=== PATIENT | female | born 1970 | race Caucasian/White ===

== ENCOUNTER 2016-09-20 20:07 | Inpatient (IN) | payer OTHER ==
[~2016-09-20] VITALS: Ht 162.6 cm; Wt 96.2 kg
[~2016-09-20 20:07] MED LIST: IBUPROFEN; TYLENOL
[2016-09-20] MEDS ORDERED: IV NORMAL SALINE 1000 ML BAG IV ONE (20:30)
--- NOTE | 2016-09-20 20:30 | NUR ---
PATIENT WALKED INTO ER C/O LOWER ABDOMINAL PAIN X 1DAY.
--- NOTE | 2016-09-20 20:36 | NUR ---
UNABLE TO ORDER MED AT THIS TIME IN COMPUTER. ORDERED MORPHINE 4MG AND ZOFRAN 4MG
[2016-09-20] MEDS ORDERED: MORPHINE SULFATE 4 MG/1 ML DISP.SYRIN IV ONE ×2 (20:45→22:00)
[2016-09-20] MEDS ORDERED: ONDANSETRON 4 MG/2 ML VIAL IV ONE ×2 (20:45→22:00)
[2016-09-20 20:52] LABS: BASOPHILS # (AUTO) 0.2 K/uL (0.0-8.0); BASOPHILS % (AUTO) 1.1 % (0.0-2.0); EOSINOPHILS # (AUTO) 0.4 K/uL (0.0-0.7); EOSINOPHILS % (AUTO) 2.2 % (0.0-7.0); HEMATOCRIT 42.5 % (37-47); LYMPHOCYTES # (AUTO) 1.3 K/UL (0.8-4.8); LYMPHOCYTES % (AUTO) 6.7 % (20.5-51.5); MEAN CORPUSCULAR HEMOGLOBIN 30.4 UUG (27.0-31.0); MEAN CORPUSCULAR HGB CONC 33 g/dL (32.0-37.0); MONOCYTES # (AUTO) 0.9 K/UL (0.1-1.30); MONOCYTES % (AUTO) 4.7 % (0.0-11.0); NEUTROPHILS % (AUTO) 85.3 % (38.5-71.5); PLATELET COUNT (AUTO) 302 K/UL (150-450); RED BLOOD CELL COUNT(AUTO) 4.62 MIL/UL (4.2-5.4); WHITE BLOOD COUNT (AUTO) 19.8 K/UL (4.0-11.2)
[2016-09-20] MEDS ORDERED: MORPHINE SULFATE 4 MG/1 ML DISP.SYRIN ONE ×2 (21:01→22:03)
[2016-09-20] MEDS ORDERED: ONDANSETRON 4 MG/2 ML VIAL ONE ×2 (21:01→22:03)
[2016-09-20 21:03] LABS: CREATININE 1.1 mg/dL (0.6-1.3); POTASSIUM 4.2 mmol/L (3.5-5.1)
[2016-09-20 21:09] LABS: BILIRUBIN,DIRECT 0.1 mg/dL (0.0-0.2); BILIRUBIN,TOTAL 0.2 mg/dL (0.2-1.0); TOTAL PROTEIN, SERUM 7.6 g/dL (6.4-8.2)
[2016-09-20 21:33] LABS: BAND % (MANUAL) 1 % (0-10); BASOPHILS % (MANUAL) 0 % (0-2); EOSINOPHILS % (MANUAL) 4 % (0-8); LYMPHOCYTES % (MANUAL) 9 % (20-40); MONOCYTES % (MANUAL) 6 % (2-10); NEUTROPHILS % (MANUAL) 80 % (42-75)
[2016-09-20 22:01] LABS: *BILIRUBIN,URIN NEGATIVE (NEGATIVE); *BLOOD, URINE 1+ (NEGATIVE); *CLARITY,URINE CLOUDY (CLEAR); *COLOR,URINE YELLOW (YELLOW); *KETONES,URINE NEGATIVE (NEGATIVE); *PROTEIN,URINE 1+ (NEGATIVE); LEUKOCYTE ESTERASE ,URINE 3+ (NEGATIVE); NITRITE, URINE NEGATIVE (NEGATIVE); PH,URINE 6.5 (5.0-8.0); UGLUCOSE NEGATIVE (NEGATIVE)
[2016-09-20 22:23] LABS: BACTERIA,URINE MODERATE /HPF (NONE SEEN); WBC,URINE 50-80 /HPF (0-3)
[2016-09-20 22:24] LABS: SQUAMOUS EPITHELIAL CELL,UR MANY /HPF (NONE SEEN); TRICHOMONAS,URINE FEW /HPF (NONE SEEN); URINE AMORPHOUS PHOSPHATES FEW /HPF
[2016-09-20] MEDS ORDERED: HYDROMORPHONE 1 MG/1 ML DISP.SYRIN IV ONE (23:00)
[2016-09-20] MEDS ORDERED: HYDROMORPHONE 1 MG/1 ML DISP.SYRIN ONE (23:12)
[2016-09-21] MEDS ORDERED: IOHEXOL 300MG/ML 100 ML INFUS..BTL ONE (00:49)
[2016-09-21] MEDS ORDERED: IV NORMAL SALINE 250 ML IV ONE (00:49)
[2016-09-21] MEDS ORDERED: MEROPENEM 500 MG in IV NORMAL SALINE 100 ML IV ONE (02:00)
[2016-09-21] MEDS ORDERED: HYDROMORPHONE 1 MG/1 ML DISP.SYRIN IV ONE (02:15)
[2016-09-21] MEDS ORDERED: MEROPENEM 500 MG VIAL IV ONE (02:25)
[2016-09-21] MEDS ORDERED: HYDROMORPHONE 1 MG/1 ML DISP.SYRIN ONE (02:25)
--- NOTE | 2016-09-21 02:41 | NUR ---
DR CHAPMAN SPOKE WITH DR RIVAS FOR CONSULT
[2016-09-21] MEDS ORDERED: METRONIDAZOLE 500 MG/NS 100 ML PIGGYBACK IV ONE (02:45)
[2016-09-21] MEDS ORDERED: Z GUARD REMEDY PASTE 57 GM TUBE TOP PRN (03:15)
[2016-09-21] MEDS ORDERED: ACETAMINOPHEN 325 MG TABLET PO PRN (03:15)
[2016-09-21] MEDS ORDERED: MORPHINE SULFATE 2 MG/1 ML DISP.SYRIN IV PRN (03:15)
[2016-09-21] MEDS ORDERED: METRONIDAZOLE 500 MG/NS 100ML 100 ML IV ONE (03:17)
--- NOTE | 2016-09-21 03:58 | NUR ---
TRANSFERED TO 2ND FLOOR VIA [facility]
--- NOTE | 2016-09-21 04:00 | NUR ---
ADMIT NEW PATIENT TO ROOM 207,PATIENT ALERT,ORIENTED,KEEP NPO EXCEPT MEDS, PATIENT EXPLAINED AND VERBALIZED UNDERSTANDING,PATIENT DROWSY, RECEIVED PAIN MEDICATION FROM ER,PAIN UNDER CONTROL,PATIENT MADE COMFORTABLE,NEEDS ATTENDED.
[2016-09-21 04:11] VITALS: BP 123/82
[2016-09-21] MEDS ORDERED: CLINDAMYCIN PHOSPHATE 900 MG/6 ML VIAL ONE (05:33)
[2016-09-21] MEDS ORDERED: GENTAMICIN SULFATE 80 MG/2 ML VIAL ONE (05:38)
[2016-09-21] MEDS: CLINDAMYCIN PHOSPHATE IV 900 MG in IV DEXTROSE 5% 100 ML IV SCH ×3 (05:53→21:02)
[2016-09-21] MEDS ORDERED: GENTAMICIN SULFATE 20 MG/2 ML VIAL IV SCH (06:00)
[2016-09-21] MEDS: ONDANSETRON 4 MG/2 ML VIAL IV PRN ×2 (06:10→17:21)
[2016-09-21] MEDS ORDERED: MORPHINE SULFATE 2 MG/1 ML DISP.SYRIN ONE (06:18)
[2016-09-21] MEDS ORDERED: ONDANSETRON 4 MG/2 ML VIAL ONE (06:18)
--- NOTE | 2016-09-21 06:38 | NUR ---
morphine 2mg iv admin for c/o pain 10/10 to right lower abdomen and zofran 4 mg iv admin for nausea.
[2016-09-21] MEDS ORDERED: MORPHINE SULFATE 4 MG/1 ML DISP.SYRIN IV ONE (09:00)
[2016-09-21] MEDS ORDERED: MORPHINE SULFATE 4 MG/1 ML DISP.SYRIN IV PRN (09:00)
--- NOTE | 2016-09-21 09:06 | NUR ---
PT IN SEVERE PAIN. DR ORDERS TO INCREASE PAIN MEDICATION VERIFIED ON EMAR HOWEVER DOES NOT SHOW UP IN PIXIS. PHARMACY AWARE AND FIXING THE ISSUE. PAIN MEDICATION OVERRIDE WITH RN FOR THIS TIME
[2016-09-21] MEDS: GENTAMICIN SULFATE INJ 100 MG in IV DEXTROSE 5% 100 ML IV SCH ×2 (10:29→20:14)
[2016-09-21 11:43] VITALS: BP 102/73
[2016-09-21 12:30] LABS: POTASSIUM 4.2 mmol/L (3.5-5.1)
[2016-09-21 12:37] LABS: BASOPHILS % (AUTO) 0.1 % (0.0-2.0); EOSINOPHILS # (AUTO) 0.1 K/uL (0.0-0.7); EOSINOPHILS % (AUTO) 0.5 % (0.0-7.0); HEMATOCRIT 42.7 % (37-47); LYMPHOCYTES # (AUTO) 1.1 K/UL (0.8-4.8); LYMPHOCYTES % (AUTO) 4.5 % (20.5-51.5); MEAN CORPUSCULAR HEMOGLOBIN 30.6 UUG (27.0-31.0); MEAN CORPUSCULAR HGB CONC 33 g/dL (32.0-37.0); MEAN CORPUSCULAR VOLUME 93.1 FL (81.0-99.0); MONOCYTES # (AUTO) 0.4 K/UL (0.1-1.30); MONOCYTES % (AUTO) 1.6 % (0.0-11.0); NEUTROPHILS # (AUTO) 21.8 K/UL (1.8-8.9); NEUTROPHILS % (AUTO) 93.3 % (38.5-71.5); PLATELET COUNT (AUTO) 301 K/UL (150-450); RED BLOOD CELL COUNT(AUTO) 4.58 MIL/UL (4.2-5.4); WHITE BLOOD COUNT (AUTO) 23.4 K/UL (4.0-11.2)
[2016-09-21 12:38] LABS: THYROID STIMULATING HORMONE 0.8 mIU/mL (0.358-3.740)
[2016-09-21] MEDS: MORPHINE SULFATE 4 MG/1 ML DISP.SYRIN IV PRN ×3 (12:46→20:15)
[2016-09-21 13:18] LABS: BAND % (MANUAL) 11 % (0-10); EOSINOPHILS % (MANUAL) 1 % (0-8); LYMPHOCYTES % (MANUAL) 8 % (20-40); MONOCYTES % (MANUAL) 2 % (2-10); NEUTROPHILS % (MANUAL) 78 % (42-75)
[2016-09-21 15:41] VITALS: BP 109/72
--- NOTE | 2016-09-21 16:11 | NUR ---
Clinical pharmacy note-Gentamicin per pharmacy Subjective: To start Gentamicin dosing on this patient (empiric therapy -no MD note yet) for leukocytosis and abdominal pain. Patient has multiple drug allergy. Objective: BUN 10/ Scr 1.1 WBC 23.4 Temp 99 Assessment/Plan: Gentamicin 100mg IV every 10 hrs(first dose given today at 1030) and draw peak and trough(ordered with tomorrow 1630 dose) for expected trough 1.1 and peak 6.0. Will monitor renal function closely to adjust the dose if needed. Will follow daily.
--- NOTE | 2016-09-21 20:09 | NUR ---
PATIENT BEEN IN BED COMPLAINING OF SEVERE ABDOMINAL PAIN. CALLED DR. OLIVAREZ MS WAS INCREASED TO 4 MG, IT WAS EFFECTIVE. PATIENT VERBALIZED RELIEF OF PAIN. DR. URRUTIA CAME TO SEE PATIENT. URINE SAMPLE WAS COLLECTED AND SENT TO LAB. SAFETY AND COMFORT PROVIDED BY STAFF. REPORT GIVEN TO DONELL.
[2016-09-21 20:46] VITALS: BP 100/64
[2016-09-21] MEDS: MAGNESIUM HYDROXIDE 30 ML LIQUID UDC PO PRN (20:59)
--- NOTE | 2016-09-21 21:05 | NUR ---
patient was seen by ,order for PICC line insertion in am,continue c/o right lower abdominal pain and nausea,continue pain and nausea control as needed,encourage fluid intake,o2 desat to 89% in room air,placed on o2 at 2l/m via nasal cannula to keep o2 sat 93%-94%
[2016-09-22] MEDS: MORPHINE SULFATE 4 MG/1 ML DISP.SYRIN IV PRN ×7 (00:27→22:23)
[2016-09-22] MEDS: ONDANSETRON 4 MG/2 ML VIAL IV PRN ×3 (05:12→19:26)
[2016-09-22] MEDS: CLINDAMYCIN PHOSPHATE IV 900 MG in IV DEXTROSE 5% 100 ML IV SCH ×2 (05:13→14:43)
[2016-09-22 05:26] VITALS: BP 102/70
--- NOTE | 2016-09-22 05:44 | NUR ---
MOM 30 ml po admin for constipation,no bowel movement this am.
[2016-09-22] MEDS: GENTAMICIN SULFATE INJ 100 MG in IV DEXTROSE 5% 100 ML IV SCH (06:44)
[2016-09-22 07:09] LABS: BASOPHILS % (AUTO) 0.1 % (0.0-2.0); EOSINOPHILS # (AUTO) 0.2 K/uL (0.0-0.7); EOSINOPHILS % (AUTO) 0.7 % (0.0-7.0); LYMPHOCYTES # (AUTO) 1.1 K/UL (0.8-4.8); LYMPHOCYTES % (AUTO) 3.2 % (20.5-51.5); MEAN CORPUSCULAR HGB CONC 33 g/dL (32.0-37.0); MEAN CORPUSCULAR VOLUME 92.7 FL (81.0-99.0); MONOCYTES # (AUTO) 0.8 K/UL (0.1-1.30); MONOCYTES % (AUTO) 2.4 % (0.0-11.0); NEUTROPHILS # (AUTO) 30.8 K/UL (1.8-8.9); NEUTROPHILS % (AUTO) 93.6 % (38.5-71.5); PLATELET COUNT (AUTO) 310 K/UL (150-450); RED BLOOD CELL COUNT(AUTO) 4.53 MIL/UL (4.2-5.4)
[2016-09-22 07:25] LABS: WHITE BLOOD COUNT (AUTO) 32.9 K/UL (4.0-11.2)
[2016-09-22 07:26] LABS: CREATININE 1.1 mg/dL (0.6-1.3); MAGNESIUM 2.1 mg/dL (1.8-2.4); PHOSPHOROUS 3.8 mg/dL (2.5-4.9); POTASSIUM 3.8 mmol/L (3.5-5.1)
--- NOTE | 2016-09-22 08:21 | NUR ---
INSERTION OF PICC LINE ORDER NOTED, LEFT MESSAGE FOR PICC LINE NURSE, AWAITING RETURN PHONE CALL
--- NOTE | 2016-09-22 08:30 | NUR ---
MEDICATED FOR C/O PAIN AND DISCOMFORTS ORDERED PATIENT STATED HAVING LOTS OF ABDOMINAL PAIN MEDICATED AND WILL OBSERVE.
[2016-09-22] MEDS: PANTOPRAZOLE SODIUM 40 MG TABLET.DR PO SCH (08:56)
--- NOTE | 2016-09-22 09:04 | NUR ---
SECOND CALL PLACED FOR PICC LINE INSERTION, LEFT MESSAGE, AWAITING PHONE CALL
[2016-09-22] MEDS ORDERED: PANTOPRAZOLE SODIUM 40 MG TABLET.DR PO ONE (09:07)
--- NOTE | 2016-09-22 09:20 | NUR ---
CALL RECEIVED FROM THE LAB WITH WBC OF 32.[address] ROLLE WITH NO NEW ORDERS AT THIS TIME.
[2016-09-22 10:33] LABS: BAND % (MANUAL) 13 % (0-10); EOSINOPHILS % (MANUAL) 2 % (0-8); LYMPHOCYTES % (MANUAL) 6 % (20-40); METAMYELOCYTES % 1 % (0-1); MONOCYTES % (MANUAL) 3 % (2-10); NEUTROPHILS % (MANUAL) 75 % (42-75)
[2016-09-22 12:04] VITALS: BP 94/65
--- NOTE | 2016-09-22 12:15 | NUR ---
PICC LINE INSERTED TO HIS RIGHT UPPER ARM TRIPLE LUMEN FLUSHED PER PROTOCOL CHECKED BY XRAY AND IN GOOD POSITION.PATIENT MEDICATED WITH MORPHINE ORDERED FOR PAIN.
[2016-09-22] MEDS ORDERED: AZITHROMYCIN IV 1,000 MG in IV DEXTROSE 5% 250 ML IV SCH (13:00)
--- NOTE | 2016-09-22 13:50 | NUR ---
CLINICAL PHARMACY NOTE:VANCOMYCIN DOSING Request for vancomycin dosing on 45 Y/o female 5'4" 212LBS SEPSIS AND POSSIBLE TUBO-OVARIAN ABCESS Temp 99.8 WBC 32.9 band 13 patient also on Merrem, clindamycin and one dose azithromycin start Vancomycin 1500mg Q18hr estimated trough 14. Will order trough level prior to 4th dose. Will continue to monitor
[2016-09-22] MEDS: MEROPENEM 1 G in IV NORMAL SALINE 100 ML IV SCH (14:11)
--- NOTE | 2016-09-22 14:30 | NUR ---
DR DANGELO HERE TO SEE PATIENT WITH NEW ORDERS AND NOTED.
[2016-09-22 15:32] VITALS: BP 104/67
[2016-09-22] MEDS ORDERED: AZITHROMYCIN IV SCH (16:00)
[2016-09-22] MEDS ORDERED: DEXTROSE 5% IV SCH (16:00)
[2016-09-22] MEDS: VANCOMYCIN IV 1,500 MG in IV DEXTROSE 5% 500 ML IV SCH (16:09)
--- NOTE | 2016-09-22 17:24 | NUR ---
REMAIN ON ANTIBIOTICS ORDERED WITH NO ADVERSE OR ALLERGIC REACTIONS AT THIS TIME.PAIN MEDICATIONS ORDERED AND HELPFUL.MADE COMFORTABLE
--- NOTE | 2016-09-22 18:51 | NUR ---
PATIENT IS RESTING AT THIS TIME SLEEPING ON AND OFF WITH NO ADVERSE OR ALLERGIC REACTIONS AT THIS TIME.
--- NOTE | 2016-09-22 19:30 | NUR ---
PT RECEIVED IN BED, ASLEEP INTERMITTENTLY. A/OX4. ABLE TO MAKE NEEDS KNOWN. V/S STABLE. NO SIGNS OF ACUTE DISTRESS. NO COMPLAINTS OF PAIN AT THIS TIME. IVF INFUSING. SAFETY MEASURES IMPLEMENTED. FALL PRECAUTIONS IN PLACE. CALL LIGHT WITHIN REACH. WILL CONT TO MONITOR.
[2016-09-22 20:00] VITALS: BP 114/77
[2016-09-22] MEDS: FLUCONAZOLE 400MG /NS 200ML IV 400 MG in PREMIXED 1 EACH IV SCH (20:50)
[2016-09-23] MEDS: CLINDAMYCIN PHOSPHATE IV 900 MG in IV DEXTROSE 5% 100 ML IV SCH ×4 (00:09→21:48)
[2016-09-23] MEDS: MEROPENEM 1 G in IV NORMAL SALINE 100 ML IV SCH ×4 (00:57→23:34)
[2016-09-23] MEDS: ONDANSETRON 4 MG/2 ML VIAL IV PRN (01:30)
[2016-09-23] MEDS: MORPHINE SULFATE 4 MG/1 ML DISP.SYRIN IV PRN ×6 (01:31→21:39)
[2016-09-23 05:36] VITALS: BP 84/62
[2016-09-23 05:58] VITALS: BP 99/63
[2016-09-23 06:41] LABS: BASOPHILS % (AUTO) 0.1 % (0.0-2.0); EOSINOPHILS # (AUTO) 0.3 K/uL (0.0-0.7); EOSINOPHILS % (AUTO) 1.3 % (0.0-7.0); HEMATOCRIT 38.9 % (37-47); LYMPHOCYTES # (AUTO) 1.5 K/UL (0.8-4.8); LYMPHOCYTES % (AUTO) 5.5 % (20.5-51.5); MEAN CORPUSCULAR HEMOGLOBIN 31.3 UUG (27.0-31.0); MEAN CORPUSCULAR HGB CONC 33 g/dL (32.0-37.0); MEAN CORPUSCULAR VOLUME 93.7 FL (81.0-99.0); MONOCYTES # (AUTO) 0.8 K/UL (0.1-1.30); NEUTROPHILS # (AUTO) 24.2 K/UL (1.8-8.9); NEUTROPHILS % (AUTO) 90.1 % (38.5-71.5); PLATELET COUNT (AUTO) 278 K/UL (150-450); RED BLOOD CELL COUNT(AUTO) 4.16 MIL/UL (4.2-5.4); WHITE BLOOD COUNT (AUTO) 26.8 K/UL (4.0-11.2)
[2016-09-23 06:47] LABS: CREATININE 1.1 mg/dL (0.6-1.3); MAGNESIUM 2.4 mg/dL (1.8-2.4); PHOSPHOROUS 2.7 mg/dL (2.5-4.9); POTASSIUM 4.3 mmol/L (3.5-5.1)
--- NOTE | 2016-09-23 06:51 | NUR ---
END OF SHIFT NOTES. PT SLEPT WELL THROUGHOUT SHIFT. V/S STABLE. NO SIGNS OF ACUTE DISTRESS. PT COMPLAINS OF PAIN DURING SHIFT. PAIN MEDICATION ADMINISTERED ORDERED. IVF INFUSING. NEEDS ATTENDED. SAFETY MAINTAINED. CALL LIGHT WITHIN REACH.
[2016-09-23] MEDS: VANCOMYCIN IV 1,500 MG in IV DEXTROSE 5% 500 ML IV SCH (10:15)
[2016-09-23] MEDS: PANTOPRAZOLE SODIUM 40 MG TABLET.DR PO SCH (10:16)
[2016-09-23 11:34] VITALS: BP 97/68
[2016-09-23] MEDS ORDERED: AZITHROMYCIN IV ONE (13:00)
[2016-09-23] MEDS ORDERED: DEXTROSE 5% IV ONE (13:00)
[2016-09-23 16:02] VITALS: BP 100/63
--- NOTE | 2016-09-23 16:04 | NUR ---
CLINICAL PHARMACY NOTE:VANCOMYCIN DOSING Subjective: To Continue vancomycin dosing on 45 Y/o female 5'4" 212LBS SEPSIS AND POSSIBLE TUBO-OVARIAN ABCESS Objective: Bun 10 Scr 1.1 Temp 97.9 WBC 26.8 patient also on Merrem, clindamycin and one dose azithromycin Assessment/Plan: Will continue Vancomycin 1500mg Q18hr estimated trough 14. Will order trough level prior to 4th dose (not ordered yet). Will continue to monitor
[2016-09-23] MEDS: FLUCONAZOLE 400MG /NS 200ML IV 400 MG in PREMIXED 1 EACH IV SCH (17:53)
--- NOTE | 2016-09-23 19:00 | NUR ---
PATIENT ALERT ORIENTED, NO SOB NO CHEST PAIN NOTED, ON PAIN MANAGEMENT, CALL LIGHT WITHIN REACH.
[2016-09-23 20:15] VITALS: BP 92/62
[2016-09-23] MEDS: LACTOBACILLUS RHAMNOSUS GG 1 EACH CAPSULE PO SCH (21:38)
[2016-09-24] MEDS: MORPHINE SULFATE 4 MG/1 ML DISP.SYRIN IV PRN ×7 (01:53→21:35)
[2016-09-24] MEDS: VANCOMYCIN IV 1,500 MG in IV DEXTROSE 5% 500 ML IV SCH ×2 (04:13→22:14)
[2016-09-24 04:57] VITALS: BP 101/69
--- NOTE | 2016-09-24 05:03 | NUR ---
PATIENT AWAKE, SLEPT MOST OF THE NIGHT NO SOB NO CHEST PAIN NOTED, CONT ON PAIN MANAGEMENT, NO S/S OF DISTRESS.
[2016-09-24] MEDS: MEROPENEM 1 G in IV NORMAL SALINE 100 ML IV SCH ×3 (06:31→21:07)
--- NOTE | 2016-09-24 06:40 | NUR ---
PATIENT COMPLAIN OF ABDOMINAL GAS PAIN, NOTIFY DR. CALABRESE WITH ORDER.
[2016-09-24] MEDS: SIMETHICONE 80 MG TAB.CHEW PO PRN ×2 (06:51→18:27)
[2016-09-24] MEDS ORDERED: SIMETHICONE 80 MG TAB.CHEW ONE (07:01)
[2016-09-24] MEDS: PANTOPRAZOLE SODIUM 40 MG TABLET.DR PO SCH (07:18)
[2016-09-24] MEDS: CLINDAMYCIN PHOSPHATE IV 900 MG in IV DEXTROSE 5% 100 ML IV SCH ×3 (07:18→21:41)
--- NOTE | 2016-09-24 07:20 | NUR ---
PATIENT RECEIVE IN ROOM ALERT AWAKE AND ORIENTED IN NO ACUTE DISTRESS. NO C/O PAIN AT THIS TIME. CALL LIGHT AT REACH.
[2016-09-24] MEDS: LACTOBACILLUS RHAMNOSUS GG 1 EACH CAPSULE PO SCH ×2 (08:20→20:30)
--- NOTE | 2016-09-24 08:45 | NUR ---
PATIENT C/O ABD PAIN. STATES SHE CAN NOT EAT UNTIL SHE HAD PAIN MEDICATION. TIM CYBER INSTRUCTOR. NOTIFIED. PATIENT MEDICATED ORDERED.
--- NOTE | 2016-09-24 09:03 | NUR ---
PATIENT RESTING COMFORTABLY IN BED. STATES PAIN IS BETTER.
[2016-09-24 11:13] LABS: HEPATITIS A AB, IgM Negative (Negative); HEPATITIS B SURFACE AB Non Reactive (.)
[2016-09-24 11:52] VITALS: BP 100/71
--- NOTE | 2016-09-24 15:48 | NUR ---
CLINICAL PHARMACY NOTE:VANCOMYCIN DOSING Subjective: To Continue vancomycin dosing on 45 Y/o female 5'4" 212LBS SEPSIS AND POSSIBLE TUBO-OVARIAN ABCESS Objective: Bun 10(09/23) Scr 1.1(09/23) Temp 99.1 WBC 26.8(09/23) patient also on Merrem, clindamycin and one dose azithromycin Assessment/Plan: Will continue Vancomycin 1500mg Q18hr estimated trough 14. Will order trough level prior to 4th dose ([facility] . Will continue to monitor
[2016-09-24 16:09] VITALS: BP 98/69
[2016-09-24] MEDS: FLUCONAZOLE 400MG /NS 200ML IV 400 MG in PREMIXED 1 EACH IV SCH (17:14)
[2016-09-24 19:00] VITALS: BP 103/71
--- NOTE | 2016-09-24 19:00 | NUR ---
END OF SHIFT NOTE: PATIENT IN NO ACUTE DISTRESS THROUGHOUT SHIFT. PAIN MANAGED WITH MEDICATION PRESCRIBED. STATES ABD IS NOT DISTENDED. VSS. NEEDS MET BY STAFF. CALL LIGHT AT REACH.
[2016-09-24] MEDS: NICOTINE 14 MG/24HR PATCH TD SCH (20:30)
--- NOTE | 2016-09-24 20:30 | NUR ---
patient alert, oriented,afebrile, patient is a smoker,requested for Nicotine patch,Md notified ,order received,patient reports moderate to severe abdominal pain,but no nausea ,medicated with Morphine 4 mg iv as needed with relief. monitor vital signs closely.
--- NOTE | 2016-09-25 | NUR ---
NPO after midnight for CT guided,needle biopsy of tubal ovarian abscess drainage,procedure explained to patient verbalized understanding and cooperative.
[2016-09-25] MEDS: MORPHINE SULFATE 4 MG/1 ML DISP.SYRIN IV PRN ×7 (01:07→23:05)
[2016-09-25 04:00] VITALS: BP 111/70
[2016-09-25 05:06] LABS: HEPATITIS Be ANTIGEN Negative (Negative)
--- NOTE | 2016-09-25 05:09 | NUR ---
NPO status maintained, vital signs stable,PICC line to RUE ,site clean/dry/intact,continue pain management as needed,fall precautions,needs attended.
[2016-09-25] MEDS: MEROPENEM 1 G in IV NORMAL SALINE 100 ML IV SCH ×3 (05:29→22:30)
[2016-09-25] MEDS: CLINDAMYCIN PHOSPHATE IV 900 MG in IV DEXTROSE 5% 100 ML IV SCH ×3 (05:59→21:48)
[2016-09-25 06:43] LABS: BASOPHILS # (AUTO) 0.1 K/uL (0.0-8.0); BASOPHILS % (AUTO) 0.5 % (0.0-2.0); EOSINOPHILS # (AUTO) 0.6 K/uL (0.0-0.7); EOSINOPHILS % (AUTO) 3.5 % (0.0-7.0); HEMATOCRIT 33.5 % (37-47); HEMOGLOBIN 11.4 G/DL (12.0-16.0); LYMPHOCYTES # (AUTO) 1.8 K/UL (0.8-4.8); LYMPHOCYTES % (AUTO) 11.1 % (20.5-51.5); MEAN CORPUSCULAR HEMOGLOBIN 31.6 UUG (27.0-31.0); MEAN CORPUSCULAR HGB CONC 34 g/dL (32.0-37.0); MEAN CORPUSCULAR VOLUME 92.3 FL (81.0-99.0); MONOCYTES # (AUTO) 1.1 K/UL (0.1-1.30); MONOCYTES % (AUTO) 6.7 % (0.0-11.0); NEUTROPHILS # (AUTO) 12.6 K/UL (1.8-8.9); NEUTROPHILS % (AUTO) 78.2 % (38.5-71.5); PLATELET COUNT (AUTO) 280 K/UL (150-450); RED BLOOD CELL COUNT(AUTO) 3.62 MIL/UL (4.2-5.4); WHITE BLOOD COUNT (AUTO) 16.2 K/UL (4.0-11.2)
[2016-09-25 06:58] LABS: BILIRUBIN,DIRECT 0.1 mg/dL (0.0-0.2); BILIRUBIN,TOTAL 0.2 mg/dL (0.2-1.0); MAGNESIUM 1.8 mg/dL (1.8-2.4); POTASSIUM 3.6 mmol/L (3.5-5.1); TOTAL PROTEIN, SERUM 6.1 g/dL (6.4-8.2)
[2016-09-25] MEDS: PANTOPRAZOLE SODIUM 40 MG TABLET.DR PO SCH (07:00)
--- NOTE | 2016-09-25 07:20 | NUR ---
RECEIVED RES IN BED. RESP IS EVEN AND UNLABORED, NO SOB. NO APPARENT DISTRESS. NO C/O PAIN OR DISCOMFORT AT THIS TIME.
[2016-09-25 07:38] LABS: BAND % (MANUAL) 4 % (0-10); EOSINOPHILS % (MANUAL) 6 % (0-8); LYMPHOCYTES % (MANUAL) 15 % (20-40); MONOCYTES % (MANUAL) 9 % (2-10); NEUTROPHILS % (MANUAL) 66 % (42-75)
[2016-09-25] MEDS: LACTOBACILLUS RHAMNOSUS GG 1 EACH CAPSULE PO SCH ×2 (07:41→20:23)
[2016-09-25] MEDS: ONDANSETRON 4 MG/2 ML VIAL IV PRN (07:48)
[2016-09-25] MEDS: NICOTINE 14 MG/24HR PATCH TD SCH (08:21)
[2016-09-25 11:43] VITALS: BP 111/75
[2016-09-25] MEDS: DOCUSATE SODIUM 100 MG CAPSULE PO SCH ×2 (12:31→20:23)
[2016-09-25] MEDS: VANCOMYCIN IV 1,500 MG in IV DEXTROSE 5% 500 ML IV SCH ×2 (12:31→23:09)
--- NOTE | 2016-09-25 15:27 | NUR ---
CLINICAL PHARMACY NOTE:VANCOMYCIN DOSING Subjective: To Continue vancomycin dosing on 45 Y/o female 5'4" LBS SEPSIS AND POSSIBLE TUBO-OVARIAN ABCESS Objective: Bun 10 Scr 1.0 Temp 98 WBC 16.2 patient also on Merrem, clindamycin Vancomycin trough 6.3 09/25-2129 Assessment/Plan: Since Vancomycin trough is subtherapeutic, will increase the dose to 1500mg IV every 11hrs(first dose today at 1300) and draw trough by 4th dose(not ordered yet) for expected trough around 15. Will monitor renal function closely to adjust the dose. Will follow daily.
[2016-09-25] MEDS: FLUCONAZOLE 400MG /NS 200ML IV 400 MG in PREMIXED 1 EACH IV SCH (17:43)
--- NOTE | 2016-09-25 18:49 | NUR ---
PT IN BED, ALERT AND RESPONSIVE. RESP IS EVEN AND UNLABORED. NO SOB. NO C/O N/V AT THIS TIME. VSS. REMAINS AFEBRILE. PAIN MANAGED WITH MEDICATIONS PRESCRIBED. PT AMBULATES WITHOUT DIFFICULTY. PT STATED "I DONT FEEL BLOATED IN MY STOMACH". NEEDS MET BY STAFF.
[2016-09-25 19:00] VITALS: BP 105/69
[2016-09-25] MEDS: MAGNESIUM HYDROXIDE 30 ML LIQUID UDC PO PRN (19:54)
--- NOTE | 2016-09-25 20:00 | NUR ---
PATIENT C/O CONSTIPATION, MILK OF MAGNESIA 30 ML PO GIVEN.
[2016-09-25] MEDS: SIMETHICONE 80 MG TAB.CHEW PO PRN (22:39)
[2016-09-25] MEDS: ALPRAZOLAM 0.25 MG TABLET PO PRN (23:05)
--- NOTE | 2016-09-25 23:05 | NUR ---
PATIENT CRYING C/O FEELING ANXIETY AND ABDOMINAL PAIN,MORPHINE AND XANAX ADMIN FOR PAIN AND ANXIETY,CONTINUE CLOSELY MONITOR.
[2016-09-26] MEDS: MORPHINE SULFATE 4 MG/1 ML DISP.SYRIN IV PRN ×6 (03:55→21:03)
[2016-09-26 04:00] VITALS: BP_SYST 106; BP_SYST 119; BP_DIAS 50; BP_DIAS 77
[2016-09-26] MEDS: CLINDAMYCIN PHOSPHATE IV 900 MG in IV DEXTROSE 5% 100 ML IV SCH ×3 (05:49→21:27)
[2016-09-26] MEDS: MEROPENEM 1 G in IV NORMAL SALINE 100 ML IV SCH ×3 (06:05→21:26)
[2016-09-26] MEDS: PANTOPRAZOLE SODIUM 40 MG TABLET.DR PO SCH (06:05)
[2016-09-26 07:22] LABS: BASOPHILS # (AUTO) 0.1 K/uL (0.0-8.0); BASOPHILS % (AUTO) 0.5 % (0.0-2.0); EOSINOPHILS # (AUTO) 0.5 K/uL (0.0-0.7); EOSINOPHILS % (AUTO) 2.8 % (0.0-7.0); HEMOGLOBIN 11.5 G/DL (12.0-16.0); LYMPHOCYTES % (AUTO) 10.7 % (20.5-51.5); MEAN CORPUSCULAR HEMOGLOBIN 31.3 UUG (27.0-31.0); MEAN CORPUSCULAR HGB CONC 34 g/dL (32.0-37.0); MEAN CORPUSCULAR VOLUME 92.7 FL (81.0-99.0); MONOCYTES % (AUTO) 5.6 % (0.0-11.0); NEUTROPHILS # (AUTO) 14.7 K/UL (1.8-8.9); NEUTROPHILS % (AUTO) 80.4 % (38.5-71.5); PLATELET COUNT (AUTO) 313 K/UL (150-450); RED BLOOD CELL COUNT(AUTO) 3.67 MIL/UL (4.2-5.4); WHITE BLOOD COUNT (AUTO) 18.3 K/UL (4.0-11.2)
--- NOTE | 2016-09-26 07:25 | NUR ---
PT IN BED, WAKE ALERT AND RESPONSIVE. RESP IS EVEN AND UNLABORED, NO SOB. NO APPARENT DISTRESS. NO C/O PAIN OR DISCOMFORT AT THIS TIME.
[2016-09-26 07:28] LABS: CREATININE 0.9 mg/dL (0.6-1.3); MAGNESIUM 1.9 mg/dL (1.8-2.4); POTASSIUM 3.7 mmol/L (3.5-5.1)
[2016-09-26] MEDS: NICOTINE 14 MG/24HR PATCH TD SCH (08:29)
[2016-09-26] MEDS: LACTOBACILLUS RHAMNOSUS GG 1 EACH CAPSULE PO SCH ×2 (08:29→20:06)
[2016-09-26] MEDS: DOCUSATE SODIUM 100 MG CAPSULE PO SCH ×2 (08:29→20:06)
[2016-09-26 09:44] LABS: BAND % (MANUAL) 10 % (0-10); EOSINOPHILS % (MANUAL) 3 % (0-8); LYMPHOCYTES % (MANUAL) 15 % (20-40); METAMYELOCYTES % 3 % (0-1); MONOCYTES % (MANUAL) 9 % (2-10); MYELOCYTES % 3 % (0-0); NEUTROPHILS % (MANUAL) 57 % (42-75)
[2016-09-26] MEDS: VANCOMYCIN IV 1,500 MG in IV DEXTROSE 5% 500 ML IV SCH ×2 (11:28→22:14)
[2016-09-26] MEDS: ALPRAZOLAM 0.25 MG TABLET PO PRN ×2 (12:03→20:06)
[2016-09-26 12:11] VITALS: BP 111/78
--- NOTE | 2016-09-26 12:26 | NUR ---
CLINICAL PHARMACY NOTE:VANCOMYCIN DOSING Subjective: To Continue vancomycin dosing on 45 Y/o female 5'4" 212LBS SEPSIS AND POSSIBLE TUBO-OVARIAN ABCESS Objective: Bun 9 Scr 0.9 Temp 98.1 WBC 18.3 Assessment/Plan: Will continue same dose of vanco 1500mg IV every 11hrs. 3rd dose today at 1100. Plan to draw trough by 4th dose (ordered for 09/26 at 2130-RN has been informed to hold 2200 dose if vanco trough level is above 20 mcg/ml). Pharmacy shall review the level in am & adjust the dose if needed. Will monitor renal function closely to adjust the dose. Will follow daily.
[2016-09-26 16:27] VITALS: BP 110/76
[2016-09-26] MEDS: FLUCONAZOLE 400MG /NS 200ML IV 400 MG in PREMIXED 1 EACH IV SCH (17:08)
[2016-09-26 20:00] VITALS: BP 101/65
--- NOTE | 2016-09-26 21:00 | NUR ---
No SOB denies chest pain. Assisted to the shower room, PICC line care done & secured.
--- NOTE | 2016-09-26 22:21 | NUR ---
Current Vanco trough level 14.9 Routine vancomycin dose administered IVPB.
[2016-09-27] MEDS: MORPHINE SULFATE 4 MG/1 ML DISP.SYRIN IV PRN ×8 (00:15→23:27)
[2016-09-27 04:00] VITALS: BP 111/60
[2016-09-27] MEDS: MEROPENEM 1 G in IV NORMAL SALINE 100 ML IV SCH ×3 (05:21→21:41)
[2016-09-27] MEDS: CLINDAMYCIN PHOSPHATE IV 900 MG in IV DEXTROSE 5% 100 ML IV SCH (05:21)
[2016-09-27] MEDS: PANTOPRAZOLE SODIUM 40 MG TABLET.DR PO SCH ×2 (05:22→06:59)
[2016-09-27 06:58] LABS: BASOPHILS # (AUTO) 0.1 K/uL (0.0-8.0); BASOPHILS % (AUTO) 0.3 % (0.0-2.0); EOSINOPHILS # (AUTO) 0.6 K/uL (0.0-0.7); HEMATOCRIT 34.9 % (37-47); HEMOGLOBIN 11.6 G/DL (12.0-16.0); LYMPHOCYTES # (AUTO) 2.1 K/UL (0.8-4.8); LYMPHOCYTES % (AUTO) 10.8 % (20.5-51.5); MEAN CORPUSCULAR HEMOGLOBIN 30.8 UUG (27.0-31.0); MEAN CORPUSCULAR HGB CONC 33 g/dL (32.0-37.0); MEAN CORPUSCULAR VOLUME 92.5 FL (81.0-99.0); MONOCYTES # (AUTO) 0.1 K/UL (0.1-1.30); MONOCYTES % (AUTO) 0.5 % (0.0-11.0); NEUTROPHILS # (AUTO) 16.3 K/UL (1.8-8.9); NEUTROPHILS % (AUTO) 85.4 % (38.5-71.5); PLATELET COUNT (AUTO) 347 K/UL (150-450); RED BLOOD CELL COUNT(AUTO) 3.78 MIL/UL (4.2-5.4); WHITE BLOOD COUNT (AUTO) 19.2 K/UL (4.0-11.2)
[2016-09-27 07:32] LABS: CREATININE 0.9 mg/dL (0.6-1.3); POTASSIUM 3.8 mmol/L (3.5-5.1)
[2016-09-27] MEDS: LACTOBACILLUS RHAMNOSUS GG 1 EACH CAPSULE PO SCH ×2 (09:14→20:19)
[2016-09-27] MEDS: DOCUSATE SODIUM 100 MG CAPSULE PO SCH ×2 (09:14→20:19)
[2016-09-27] MEDS: NICOTINE 14 MG/24HR PATCH TD SCH (09:14)
[2016-09-27] MEDS: ONDANSETRON 4 MG/2 ML VIAL IV PRN (09:14)
[2016-09-27] MEDS: VANCOMYCIN IV 1,500 MG in IV DEXTROSE 5% 500 ML IV SCH ×2 (09:55→20:19)
[2016-09-27] MEDS: ALPRAZOLAM 0.25 MG TABLET PO PRN ×2 (11:40→21:41)
[2016-09-27 11:42] VITALS: BP 109/78
[2016-09-27 12:05] LABS: BAND % (MANUAL) 6 % (0-10); EOSINOPHILS % (MANUAL) 6 % (0-8); LYMPHOCYTES % (MANUAL) 12 % (20-40); METAMYELOCYTES % 1 % (0-1); MONOCYTES % (MANUAL) 3 % (2-10); MYELOCYTES % 3 % (0-0); NEUTROPHILS % (MANUAL) 69 % (42-75)
[2016-09-27 15:28] VITALS: BP 108/74
--- NOTE | 2016-09-27 15:40 | NUR ---
CLINICAL PHARMACY NOTE:VANCOMYCIN DOSING Subjective: To Continue vancomycin dosing on 45 Y/o female 5'4" 212LBS SEPSIS AND POSSIBLE TUBO-OVARIAN ABCESS Objective: Bun 8 Scr 0.9 Temp 98.5 WBC 19.2 Vancomycin trough 14.9 Assessment/Plan: Since trough is within the range, will continue same dose of vanco 1500mg IV every 11hrs. Will closely monitor renal function to adjust the dose if needed. Will follow daily.
[2016-09-27] MEDS ORDERED: IOHEXOL 300MG/ML 100 ML INFUS..BTL ONE (15:41)
[2016-09-27] MEDS ORDERED: NORMAL SALINE FLUSH 10 ML DISP.SYRIN ONE (15:41)
[2016-09-27] MEDS ORDERED: IV NORMAL SALINE 250 ML IV ONE (15:41)
--- NOTE | 2016-09-27 18:15 | NUR ---
PER MADISON DUMONT NP "PUT ORDER FOR FLAGYL 500 MG TWICE A DAY FOR 7 DAYS STARTING TONIGHT" ORDER NOTED.
--- NOTE | 2016-09-27 18:54 | NUR ---
PT IS LAYING IN BED COMFORTABLY. NO S/S OF RESPIRATORY DISTRESS NOTED, NO PAIN NOTED, IV INTACT/PATENT. ALL SAFETY NEEDS ARE MET.
[2016-09-27 20:05] VITALS: BP 115/72
[2016-09-27] MEDS: METRONIDAZOLE 500 MG TABLET PO SCH (20:19)
[2016-09-27 22:00] VITALS: BP 115/72
[2016-09-28] MEDS: MORPHINE SULFATE 4 MG/1 ML DISP.SYRIN IV PRN ×4 (04:52→19:50)
[2016-09-28] MEDS: MEROPENEM 1 G in IV NORMAL SALINE 100 ML IV SCH ×3 (05:43→21:36)
--- NOTE | 2016-09-28 05:47 | NUR ---
PATIENT AWAKE ALERT, NO SOB NO CHEST PAIN, CONT ON PAIN MANAGEMENT, NO S/S OF DISTRESS.
[2016-09-28] MEDS: VANCOMYCIN IV 1,500 MG in IV DEXTROSE 5% 500 ML IV SCH ×2 (06:04→17:59)
[2016-09-28] MEDS: PANTOPRAZOLE SODIUM 40 MG TABLET.DR PO SCH (06:08)
[2016-09-28 06:47] VITALS: BP 111/62
--- NOTE | 2016-09-28 07:10 | NUR ---
PATIENT RECEIVED IN ROOM RESTING WITH EYES CLOSED IN NO ACUTE DISTRESS. CALL LIGHT AT REACH.
[2016-09-28 07:22] LABS: BASOPHILS % (AUTO) 0.2 % (0.0-2.0); EOSINOPHILS # (AUTO) 0.5 K/uL (0.0-0.7); EOSINOPHILS % (AUTO) 3.4 % (0.0-7.0); HEMOGLOBIN 12.2 G/DL (12.0-16.0); LYMPHOCYTES # (AUTO) 1.2 K/UL (0.8-4.8); LYMPHOCYTES % (AUTO) 7.7 % (20.5-51.5); MEAN CORPUSCULAR HEMOGLOBIN 30.4 UUG (27.0-31.0); MEAN CORPUSCULAR HGB CONC 33 g/dL (32.0-37.0); MEAN CORPUSCULAR VOLUME 92.1 FL (81.0-99.0); MONOCYTES # (AUTO) 0.1 K/UL (0.1-1.30); MONOCYTES % (AUTO) 0.9 % (0.0-11.0); NEUTROPHILS # (AUTO) 13.5 K/UL (1.8-8.9); NEUTROPHILS % (AUTO) 87.8 % (38.5-71.5); PLATELET COUNT (AUTO) 347 K/UL (150-450); RED BLOOD CELL COUNT(AUTO) 4.02 MIL/UL (4.2-5.4); WHITE BLOOD COUNT (AUTO) 15.3 K/UL (4.0-11.2)
[2016-09-28 07:55] LABS: MAGNESIUM 2.1 mg/dL (1.8-2.4); POTASSIUM 4.2 mmol/L (3.5-5.1)
[2016-09-28] MEDS: METRONIDAZOLE 500 MG TABLET PO SCH ×2 (08:26→20:17)
[2016-09-28] MEDS: DOCUSATE SODIUM 100 MG CAPSULE PO SCH ×2 (08:26→21:00)
[2016-09-28] MEDS: NICOTINE 14 MG/24HR PATCH TD SCH (08:27)
[2016-09-28] MEDS: LACTOBACILLUS RHAMNOSUS GG 1 EACH CAPSULE PO SCH ×2 (08:27→20:16)
--- NOTE | 2016-09-28 09:00 | NUR ---
on bed, resting. sleeping comfortable
[2016-09-28 10:05] LABS: BAND % (MANUAL) 7 % (0-10); BASOPHILS % (MANUAL) 1 % (0-2); EOSINOPHILS % (MANUAL) 6 % (0-8); LYMPHOCYTES % (MANUAL) 6 % (20-40); METAMYELOCYTES % 3 % (0-1); MONOCYTES % (MANUAL) 4 % (2-10); MYELOCYTES % 1 % (0-0); NEUTROPHILS % (MANUAL) 72 % (42-75)
--- NOTE | 2016-09-28 10:34 | NUR ---
crying , getting nervous. emotional support provided. wanted to walk around for now. stopped crying for now.
[2016-09-28] MEDS: ALPRAZOLAM 0.25 MG TABLET PO PRN ×2 (10:58→18:41)
--- NOTE | 2016-09-28 10:59 | NUR ---
patient aware non smoking hospital, walked around and asked for body cleaner and able to find one and smoked in the patio, discussed noncompliance with hospital policy, verbalized due to anxiety and needed to smoke, emotional support provided need to stop smoking. on nicoderm and stated took off patch while smoking and returned it back after smoking while is also non compliance with med use. verbalized anxious to go home , xanax given as requested
[2016-09-28 11:29] VITALS: BP 147/94
--- NOTE | 2016-09-28 14:47 | NUR ---
CLINICAL PHARMACY NOTE:VANCOMYCIN DOSING Subjective: To Continue vancomycin dosing on 45 Y/o female 5'4" 212LBS SEPSIS AND POSSIBLE TUBO-OVARIAN ABCESS Objective: Bun 5 Scr 1.0 Temp 98.2 WBC 15.3 Vancomycin trough 14.9 (on 09/26) Assessment/Plan: Since trough was within the range, will continue same dose of vanco 1500mg IV every 11hrs. Will closely monitor renal function to adjust the dose if needed. Will follow daily.
[2016-09-28 15:12] VITALS: BP 106/71
--- NOTE | 2016-09-28 18:00 | NUR ---
consented for procedure in am, 1000. anxious , aware will give med later , not due.
[2016-09-28 19:00] VITALS: BP 127/82
--- NOTE | 2016-09-28 19:00 | NUR ---
PATIENT UP AMBULATE IN HALLWAYS, NO SOB NO CHEST PAIN, ON PAIN MANAGEMENT, REMIND PATIENT TO BE REMAIN NPO AFTER MIDNIGHT.
--- NOTE | 2016-09-28 19:19 | NUR ---
feeling much better, less anxious. multiple episodes of crying due to disease process, pending result of procedure. emotional support provided, ambulatory in hallway, smiling prn
[2016-09-28] MEDS: SIMETHICONE 80 MG TAB.CHEW PO PRN (21:44)
--- NOTE | 2016-09-29 | NUR ---
PATIENT IN BED NO SOB NO CHEST PAIN, REMIND PATIENT TO REMAIN NPO, PATIENT VERBALIZED UNDERSTANDING, NO DISTRESS, CONT ON PAIN MANAGEMENT.
[2016-09-29] MEDS: MORPHINE SULFATE 4 MG/1 ML DISP.SYRIN IV PRN ×4 (01:29→13:37)
[2016-09-29 04:00] VITALS: BP 112/76
[2016-09-29] MEDS: MEROPENEM 1 G in IV NORMAL SALINE 100 ML IV SCH ×2 (05:12→14:21)
[2016-09-29] MEDS: VANCOMYCIN IV 1,500 MG in IV DEXTROSE 5% 500 ML IV SCH ×2 (05:21→16:05)
[2016-09-29] MEDS: PANTOPRAZOLE SODIUM 40 MG TABLET.DR PO SCH (06:08)
--- NOTE | 2016-09-29 07:10 | NUR ---
RECEIVED REPORT FROM ELECTRICAL PROSPECTOR NURSE, PATIENT IN BED, SAFETY CHECK, SIDE RAILS UP X2, BED IN LOW POSITION.
[2016-09-29 08:11] LABS: CREATININE 0.9 mg/dL (0.6-1.3); POTASSIUM 3.9 mmol/L (3.5-5.1)
[2016-09-29] MEDS: DOCUSATE SODIUM 100 MG CAPSULE PO SCH (08:12)
[2016-09-29] MEDS: NICOTINE 14 MG/24HR PATCH TD SCH (08:12)
[2016-09-29] MEDS: METRONIDAZOLE 500 MG TABLET PO SCH (08:12)
[2016-09-29] MEDS: ALPRAZOLAM 0.25 MG TABLET PO PRN (08:12)
[2016-09-29] MEDS: LACTOBACILLUS RHAMNOSUS GG 1 EACH CAPSULE PO SCH (08:12)
[2016-09-29 08:20] LABS: BASOPHILS % (AUTO) 0.1 % (0.0-2.0); EOSINOPHILS # (AUTO) 0.4 K/uL (0.0-0.7); EOSINOPHILS % (AUTO) 2.6 % (0.0-7.0); HEMATOCRIT 33.7 % (37-47); HEMOGLOBIN 11.4 G/DL (12.0-16.0); LYMPHOCYTES # (AUTO) 1.9 K/UL (0.8-4.8); LYMPHOCYTES % (AUTO) 11.4 % (20.5-51.5); MEAN CORPUSCULAR HEMOGLOBIN 31.6 UUG (27.0-31.0); MEAN CORPUSCULAR HGB CONC 34 g/dL (32.0-37.0); MONOCYTES # (AUTO) 0.5 K/UL (0.1-1.30); MONOCYTES % (AUTO) 3.1 % (0.0-11.0); NEUTROPHILS % (AUTO) 82.8 % (38.5-71.5); PLATELET COUNT (AUTO) 332 K/UL (150-450); RED BLOOD CELL COUNT(AUTO) 3.62 MIL/UL (4.2-5.4); WHITE BLOOD COUNT (AUTO) 16.8 K/UL (4.0-11.2)
[2016-09-29 09:34] LABS: BAND % (MANUAL) 8 % (0-10); EOSINOPHILS % (MANUAL) 7 % (0-8); LYMPHOCYTES % (MANUAL) 11 % (20-40); METAMYELOCYTES % 1 % (0-1); MYELOCYTES % 1 % (0-0); NEUTROPHILS % (MANUAL) 72 % (42-75)
[2016-09-29] MEDS ORDERED: FENTANYL CITRATE 100 MCG/2 ML AMPUL IV PRN (10:15)
[2016-09-29] MEDS ORDERED: MIDAZOLAM HCL 2 MG/2 ML VIAL IV PRN (10:15)
[2016-09-29 11:51] VITALS: BP 107/80
--- NOTE | 2016-09-29 12:02 | NUR ---
We had some delay on performing CT drainage/aspiration on OGDEN , OLIVIA because of short of staff in nursing department to help us with moderate sedation .Doctor Laurent ( Invasive Procedure Radiologist)was not happy about this situation.
--- NOTE | 2016-09-29 14:53 | NUR ---
CLINICAL PHARMACY NOTE:VANCOMYCIN DOSING Subjective: To Continue vancomycin dosing on 45 Y/o female 5'4" 212LBS SEPSIS AND POSSIBLE TUBO-OVARIAN ABCESS Objective: Bun 9 Scr 0.9 Temp 99.2 WBC 16.8 Vancomycin trough 14.9 (on 09/26) Assessment/Plan: Since trough was within the range, will continue same dose of vanco 1500mg IV every 11hrs. Will closely monitor renal function to adjust the dose if needed. Will follow daily.
--- NOTE | 2016-09-29 15:15 | NUR ---
PATIENT HAS LEFT THE BUILDING AND SECURITY WAS NOTIFIED.
--- NOTE | 2016-09-29 15:45 | NUR ---
PATIENT WALKED INTO THE BUILDING, NO EVIDENCE OF DISTRESS, SHE STATED THAT SHE WENT OUT TO SMOKE AND HID FROM STAFF IN ORDER NOT TO BE FOUND. PATIENT IS CURRENTLY IN BED, SIDE RAILS UPX2, BED ALARM ON. PATIENT NOTIFIED THAT SHE WILL BE CONSIDERED AMA IF SHE LEAVES THE BUILDING.
[2016-09-29 16:22] VITALS: BP 131/90
--- NOTE | 2016-09-29 17:30 | NUR ---
ASKED FOR VIDAL. FOUND PATIENT TEARFUL & UPSET. AFRAID OF BEING TRANSFERRED TO A HIGHER LEVEL OF CARE, BECAUSE SHE MAY NEED A HYSTERECTOMY. EMOTIONAL SUPPORT. STATES LEAVING AMA.
--- NOTE | 2016-09-29 18:00 | NUR ---
DR. ROLLE AWARE. PICC LINE DC'D, & PRESSURE DRESSING APPLIED. LINE INSPECTED & FOUND TO BE INTACT. AMA PAPERS SIGNED. EDUCATED ABOUT ABD. DRAIN, & ADVISED TO FOLLOW UP WITH PMD, OBGYN, OR AN ER TO CHECK DRAIN. VERBALIZED UNDERSTANDING.
--- NOTE | 2016-09-29 18:40 | NUR ---
BOYFRIEND HERE TO TAKE HER HOME. DENIES PAIN OR DISCOMFORT. LEFT HOSPITAL AMBULATORY, ACCOMPANIED BY FRIEND.
[2016-10-03 10:09] LABS: *GC NAA Negative (Negative); *TRIC.VAG. NAA Positive (Negative)
== END 2016-09-29 18:35 | disposition left against medical advice (07) | DRG 720 ==
LOC: ER 20:11 → MED 09-21 01:00
PROVIDERS: ADMIT Family Medicine; ATTEND Family Medicine
DX: A41.9 Sepsis, unspecified organism (principal); E46 Unspecified protein-calorie malnutrition; E88.09 Other disorders of plasma-protein metabolism, not elsewhere classified; E66.01 Morbid (severe) obesity due to excess calories; N39.0 Urinary tract infection, site not specified; A59.9 Trichomoniasis, unspecified; F17.210 Nicotine dependence, cigarettes, uncomplicated; F41.9 Anxiety disorder, unspecified; J42 Unspecified chronic bronchitis; N70.93 Salpingitis and oophoritis, unspecified; G89.29 Other chronic pain; Z68.36 Body mass index [BMI] 36.0-36.9, adult; R74.0 Nonspecific elevation of levels of transaminase and lactic acid dehydrogenase [LDH]; R73.9 Hyperglycemia, unspecified; M54.30 Sciatica, unspecified side; Z87.898 Personal history of other specified conditions; Z90.49 Acquired absence of other specified parts of digestive tract; N73.9 Female pelvic inflammatory disease, unspecified; R93.5 Abnormal findings on diagnostic imaging of other abdominal regions, including retroperitoneum; Z83.3 Family history of diabetes mellitus
CPT/HCPCS: 36415; 71010; 76856; 77012; 83550; 83690; 83735; 84100; 84443; 84703; 85025; 85610; 85730; 86592; 86706; 86709; 86803; 87070; 87086; 87350; 87491; 87806; A4663; C1751; J0456; J1170; J1450; J1580; J2185; J2270; J2405; J3370; J3490; J7030; J7050; J7060; Q9967

== ENCOUNTER 2016-10-17 11:58 | Emergency (ER) | payer OTHER ==
[~2016-10-17] VITALS: Ht 160 cm; Wt 97.1 kg
--- NOTE | 2016-10-17 12:24 | NUR ---
pt is in room #2a. Dr avina evaluated the pt.
[2016-10-17] MEDS ORDERED: IV NORMAL SALINE 250 ML IV ONE (13:08)
[2016-10-17] MEDS ORDERED: IOHEXOL 300MG/ML 100 ML INFUS..BTL ONE (13:08)
--- NOTE | 2016-10-17 13:22 | NUR ---
pt left er against medical advise of dr avina. dr avina explained all risks of leaving hospital ama to the pt. pt verbalised full understanding of explanations. pt's gait is stable. no s/s of acute distress at this time.
[2016-10-17 13:27] VITALS: BP 132/79
[2016-10-17 13:31] LABS: *BILIRUBIN,URIN NEGATIVE (NEGATIVE); *BLOOD, URINE NEGATIVE (NEGATIVE); *CLARITY,URINE SLIGHTLY CLOUDY (CLEAR); *COLOR,URINE YELLOW (YELLOW); *KETONES,URINE NEGATIVE (NEGATIVE); *PROTEIN,URINE NEGATIVE (NEGATIVE); LEUKOCYTE ESTERASE ,URINE TRACE (NEGATIVE); NITRITE, URINE NEGATIVE (NEGATIVE); PH,URINE 5.5 (5.0-8.0); UGLUCOSE NEGATIVE (NEGATIVE)
[2016-10-17 13:33] LABS: *URINE HCG, QUAL NEGATIVE (NEGATIVE)
[2016-10-17 13:35] LABS: BACTERIA,URINE MODERATE /HPF (NONE SEEN); RBC,URINE 0-3 /HPF (0-3); SQUAMOUS EPITHELIAL CELL,UR MANY /HPF (NONE SEEN)
== END 2016-10-17 13:28 | disposition left against medical advice (07) ==
LOC: ER 12:00
DX: Z48.01 Encounter for change or removal of surgical wound dressing (principal); N70.93 Salpingitis and oophoritis, unspecified; F17.200 Nicotine dependence, unspecified, uncomplicated; F10.20 Alcohol dependence, uncomplicated; F19.10 Other psychoactive substance abuse, uncomplicated; Z88.0 Allergy status to penicillin; Z88.1 Allergy status to other antibiotic agents; Z88.7 Allergy status to serum and vaccine; Z88.6 Allergy status to analgesic agent; Z90.49 Acquired absence of other specified parts of digestive tract
CPT/HCPCS: 84703; A4663; J7050; Q9967

== ENCOUNTER 2016-10-19 17:49 | Emergency (ER) | payer OTHER ==
[~2016-10-19] VITALS: Ht 160 cm; Wt 97.1 kg
--- NOTE | 2016-10-19 18:40 | NUR ---
Pt signed consent for CT with IV contrast after Dr. Garcia spoke with the pt.
--- NOTE | 2016-10-19 19:05 | NUR ---
Received report from DONELL Parnell. Assumed care of pt at this time. Lab at bedside.
[2016-10-19 19:11] LABS: BASOPHILS # (AUTO) 0.1 K/uL (0.0-8.0); BASOPHILS % (AUTO) 0.7 % (0.0-2.0); EOSINOPHILS # (AUTO) 0.6 K/uL (0.0-0.7); EOSINOPHILS % (AUTO) 5.7 % (0.0-7.0); HEMATOCRIT 36.2 % (37-47); HEMOGLOBIN 11.9 G/DL (12.0-16.0); LYMPHOCYTES # (AUTO) 2.4 K/UL (0.8-4.8); LYMPHOCYTES % (AUTO) 25.1 % (20.5-51.5); MEAN CORPUSCULAR HEMOGLOBIN 30.3 UUG (27.0-31.0); MEAN CORPUSCULAR HGB CONC 33 g/dL (32.0-37.0); MEAN CORPUSCULAR VOLUME 91.7 FL (81.0-99.0); MONOCYTES # (AUTO) 0.6 K/UL (0.1-1.30); MONOCYTES % (AUTO) 5.8 % (0.0-11.0); NEUTROPHILS % (AUTO) 62.7 % (38.5-71.5); PLATELET COUNT (AUTO) 359 K/UL (150-450); RED BLOOD CELL COUNT(AUTO) 3.94 MIL/UL (4.2-5.4); WHITE BLOOD COUNT (AUTO) 9.7 K/UL (4.0-11.2)
[2016-10-19 19:18] LABS: POTASSIUM 3.8 mmol/L (3.5-5.1)
[2016-10-19 19:23] LABS: BILIRUBIN,TOTAL 0.1 mg/dL (0.2-1.0)
[2016-10-19] MEDS: ONDANSETRON IV *ER 4 MG/2 ML VIAL IV ONE ×2 (19:24→20:05)
--- NOTE | 2016-10-19 19:24 | NUR ---
Pt c/o nausea. MD notified and pt medicated, will monitor for effects of medication.
[2016-10-19] MEDS ORDERED: ONDANSETRON 4 MG/2 ML VIAL ONE ×2 (19:30→20:11)
[2016-10-19] MEDS ORDERED: NORMAL SALINE FLUSH 10 ML DISP.SYRIN ONE (19:41)
[2016-10-19] MEDS ORDERED: IOHEXOL 300MG/ML 100 ML INFUS..BTL ONE (19:41)
[2016-10-19] MEDS: HYDROMORPHONE 1 MG/1 ML DISP.SYRIN IV ONE (20:04)
--- NOTE | 2016-10-19 20:05 | NUR ---
Pt returned from CT. Pt c/o pain to abd. Sts as she was changing her drainage bag fell and she accidently stepped on it , causing pain. MD notified and pt medicated for discomfort. Will monitor for effects of meds.
[2016-10-19] MEDS ORDERED: HYDROMORPHONE 1 MG/1 ML DISP.SYRIN ONE (20:11)
[2016-10-19] MEDS: MAG HYDROX/AL HYDROX/SIMETH 30 ML LIQUID UDC PO ONE (20:44)
[2016-10-19] MEDS: DICYCLOMINE HCL 10 MG/5 ML UDC LIQ PO ONE (20:44)
--- NOTE | 2016-10-19 20:46 | NUR ---
Pt c/o gas pain. MD notified and pt medicated for her discomfort. Will monitor for effects of medication. Pt resting in position of comfort for self.
[2016-10-19] MEDS ORDERED: MAG HYDROX/AL HYDROX/SIMETH 30 ML LIQUID UDC ONE (20:51)
[2016-10-19] MEDS ORDERED: DICYCLOMINE HCL 10 MG/5 ML UDC LIQ ONE ×2 (20:51→20:52)
--- NOTE | 2016-10-19 21:30 | NUR ---
Pt sts she is feeling better. Pt stable for discharge per MD. Pt given ACI. Pt verbalized understanding of dc instructions. Pt ambulated out of ER with steady gait and ride home.
[2016-10-19 22:11] VITALS: BP 114/72
== END 2016-10-19 21:30 | disposition home or self-care (01) ==
LOC: ER 17:50
DX: N70.93 Salpingitis and oophoritis, unspecified (principal); F10.20 Alcohol dependence, uncomplicated; F17.200 Nicotine dependence, unspecified, uncomplicated; F19.10 Other psychoactive substance abuse, uncomplicated; Z88.0 Allergy status to penicillin; Z88.6 Allergy status to analgesic agent; Z88.1 Allergy status to other antibiotic agents; Z88.7 Allergy status to serum and vaccine; Z90.49 Acquired absence of other specified parts of digestive tract
CPT/HCPCS: 36415; 85025; A4663; J1170; J2405; J3490; Q9967

== ENCOUNTER 2016-10-29 19:13 | Inpatient (IN) | payer OTHER ==
[~2016-10-29] VITALS: Ht 160 cm; Wt 93.0 kg
[2016-10-29] MEDS ORDERED: CIPR-262 PO (20:55)
[2016-10-29] MEDS ORDERED: CLIN300C11 PO (20:55)
[2016-10-29] MEDS ORDERED: HYDR-3326 PO (20:55)
[2016-10-29] MEDS ORDERED: IV NORMAL SALINE 1000 ML BAG IV ONE (21:45)
[2016-10-29 22:09] LABS: POTASSIUM 3.8 mmol/L (3.5-5.1)
[2016-10-29 22:14] LABS: BASOPHILS # (AUTO) 0.1 K/uL (0.0-8.0); BASOPHILS % (AUTO) 0.4 % (0.0-2.0); EOSINOPHILS # (AUTO) 0.5 K/uL (0.0-0.7); EOSINOPHILS % (AUTO) 3.4 % (0.0-7.0); HEMATOCRIT 37.1 % (37-47); HEMOGLOBIN 12.2 G/DL (12.0-16.0); LYMPHOCYTES # (AUTO) 2.2 K/UL (0.8-4.8); LYMPHOCYTES % (AUTO) 15.3 % (20.5-51.5); MEAN CORPUSCULAR HEMOGLOBIN 30.1 UUG (27.0-31.0); MEAN CORPUSCULAR HGB CONC 33 g/dL (32.0-37.0); MEAN CORPUSCULAR VOLUME 91.3 FL (81.0-99.0); MONOCYTES # (AUTO) 0.7 K/UL (0.1-1.30); NEUTROPHILS % (AUTO) 75.9 % (38.5-71.5); PLATELET COUNT (AUTO) 321 K/UL (150-450); RED BLOOD CELL COUNT(AUTO) 4.07 MIL/UL (4.2-5.4); WHITE BLOOD COUNT (AUTO) 14.5 K/UL (4.0-11.2)
[2016-10-29 22:15] LABS: BILIRUBIN,DIRECT 0.1 mg/dL (0.0-0.2); BILIRUBIN,TOTAL 0.2 mg/dL (0.2-1.0); TOTAL PROTEIN, SERUM 7.2 g/dL (6.4-8.2)
[2016-10-29] MEDS ORDERED: IOHEXOL 300MG/ML 100 ML INFUS..BTL ONE (22:57)
[2016-10-29] MEDS ORDERED: NORMAL SALINE FLUSH 10 ML DISP.SYRIN ONE (22:57)
[2016-10-29] MEDS ORDERED: IV NORMAL SALINE 250 ML IV ONE (22:57)
[2016-10-29 23:29] LABS: *BILIRUBIN,URIN NEGATIVE (NEGATIVE); *BLOOD, URINE NEGATIVE (NEGATIVE); *CLARITY,URINE CLOUDY (CLEAR); *COLOR,URINE YELLOW (YELLOW); *KETONES,URINE NEGATIVE (NEGATIVE); *PROTEIN,URINE TRACE (NEGATIVE); *UROBILINOGEN,URINE 0.2 E.U./dl (NORMAL); LEUKOCYTE ESTERASE ,URINE TRACE (NEGATIVE); NITRITE, URINE NEGATIVE (NEGATIVE); UGLUCOSE NEGATIVE (NEGATIVE)
[2016-10-29 23:31] LABS: BACTERIA,URINE MODERATE /HPF (NONE SEEN); RBC,URINE 0-3 /HPF (0-3)
[2016-10-29 23:32] LABS: SQUAMOUS EPITHELIAL CELL,UR MANY /HPF (NONE SEEN)
[2016-10-30] MEDS ORDERED: VANCOMYCIN IV 200 ML IV ONE (01:00)
[2016-10-30] MEDS ORDERED: ONDANSETRON 4 MG/2 ML VIAL IV PRN (01:00)
[2016-10-30] MEDS ORDERED: IV NORMAL SALINE 1000 ML BAG IV ONE (01:00)
[2016-10-30] MEDS ORDERED: ACETAMINOPHEN 325 MG TABLET PO PRN (01:00)
--- NOTE | 2016-10-30 02:00 | NUR ---
Pt. admitted to [facility], under care of Dr. Anderson Belongs List completed
[2016-10-30] MEDS ORDERED: VANCOMYCIN IV 1 G in PREMIXED 0 EACH IV ONE (02:15)
--- NOTE | 2016-10-30 02:15 | NUR ---
ADMITTED NEW PATIENT TO ROOM 216,ALERT,ORIENTED,DROWSY, COOPERATIVE,PATIENT PRESENT WITH LEFT PERCUTANEOUS PELVIC DRAINAGE FROM TUBO OVARIAN ABSCESS,WHICH DRAINAGE BAG WAS CUT OFF BY PATIENT HERSELF ,PATIENT REPORTED MINIMAL ABDOMINAL PAIN NOW , DRESSING CHANGED TO DRAINAGE SITE,ABDOMINAL SOFT SLIGHTLY DISTENDED,BOWEL SOUND PRESENT, NO NAUSEA NOTED.PLAN OF CARE EXPLAINED TO PATIENT ,VERBALIZED UNDERSTANDING.
[2016-10-30] MEDS ORDERED: VANCOMYCIN IV 200 ML ONE (03:12)
[2016-10-30] MEDS ORDERED: AZTREONAM 1 G VIAL ONE (03:13)
[2016-10-30] MEDS ORDERED: METRONIDAZOLE 500 MG/NS 100ML 100 ML IV ONE (03:14)
[2016-10-30] MEDS: AZTREONAM 2 G in IV NORMAL SALINE 100 ML IV SCH ×3 (03:29→21:55)
[2016-10-30 04:39] VITALS: BP 109/73
[2016-10-30] MEDS: METRONIDAZOLE 500 MG/NS 100ML 500 MG in PREMIXED 1 EACH IV SCH ×3 (06:33→22:39)
[2016-10-30 06:40] VITALS: BP 98/66
[2016-10-30] MEDS: PANTOPRAZOLE SODIUM 40 MG VIAL IV SCH (09:59)
[2016-10-30] MEDS ORDERED: VANCOMYCIN IV 500 MG in IV DEXTROSE 5% 100 ML IV ONE (10:00)
[2016-10-30] MEDS ORDERED: IV NS 1000 ML 1,000 ML IV PRN (10:15)
[2016-10-30 10:31] LABS: BASOPHILS # (AUTO) 0.2 K/uL (0.0-8.0); BASOPHILS % (AUTO) 1.5 % (0.0-2.0); EOSINOPHILS # (AUTO) 0.4 K/uL (0.0-0.7); EOSINOPHILS % (AUTO) 2.7 % (0.0-7.0); HEMATOCRIT 37.7 % (37-47); HEMOGLOBIN 12.2 G/DL (12.0-16.0); LYMPHOCYTES # (AUTO) 1.6 K/UL (0.8-4.8); MEAN CORPUSCULAR HEMOGLOBIN 29.8 UUG (27.0-31.0); MEAN CORPUSCULAR HGB CONC 32 g/dL (32.0-37.0); MEAN CORPUSCULAR VOLUME 92.1 FL (81.0-99.0); MONOCYTES # (AUTO) 0.6 K/UL (0.1-1.30); MONOCYTES % (AUTO) 4.4 % (0.0-11.0); NEUTROPHILS # (AUTO) 10.2 K/UL (1.8-8.9); NEUTROPHILS % (AUTO) 79.4 % (38.5-71.5); PLATELET COUNT (AUTO) 233 K/UL (150-450); RED BLOOD CELL COUNT(AUTO) 4.09 MIL/UL (4.2-5.4)
[2016-10-30 10:56] LABS: CREATININE 0.9 mg/dL (0.6-1.3); POTASSIUM 3.9 mmol/L (3.5-5.1)
[2016-10-30 11:07] LABS: THYROID STIMULATING HORMONE 2.519 mIU/mL (0.358-3.740)
[2016-10-30 11:27] LABS: BILIRUBIN,TOTAL 0.3 mg/dL (0.2-1.0); MAGNESIUM 1.9 mg/dL (1.8-2.4); PHOSPHOROUS 3.5 mg/dL (2.5-4.9); TOTAL PROTEIN, SERUM 6.6 g/dL (6.4-8.2)
[2016-10-30 11:45] VITALS: BP 97/67
[2016-10-30] MEDS ORDERED: MORPHINE SULFATE 2 MG/1 ML DISP.SYRIN IV PRN (13:15)
--- NOTE | 2016-10-30 15:18 | NUR ---
CLINICAL PHARMACY NOTE: VANCOMYCIN PHARMACY TO DOSE Sujbective: To start vancomycin in this 46 yo female for indication of "suspected infection" Objective: height: 160 cm weight: 93 kg BUN 15 Scr 1.0 wbc 14.5 temp 98.2 1gm vanco given at 0500 today in ER Assessment/Plan As 1gm given earlier, dosed another 500mg at 1000 today per pt's weight. Scheduled regimen of vanco 1500mg q17hr, first dose due 10/31 @0300. Expected trough of 14.82. Will order trough before 4th scheduled dose (not ordered yet). Will follow renal function and dose per level if to become unstable. Will continue to monitor
[2016-10-30] MEDS ORDERED: LORAZEPAM 1 MG TABLET PO PRN (15:30)
[2016-10-30 15:48] VITALS: BP 101/78
--- NOTE | 2016-10-30 16:14 | NUR ---
PT. SLEEPING MOST OF AM. OOB AND WALKING WITH SON LATE AM. PT. ENCOURAGED TO STAY ON UNIT. REPORTS INTERMITTENT CRAMPING PAIN 3/10 AND DOES NOT WANT PAIN MEDS. C/O INTERMITTENT NAUSEA. ZOFRAN GIVEN PER 143 PT. NOTED TO BE VERY UPSET WHILE SPEAKING WITH FAMILY REGARDING A DIRECTOR CALL C[employer] SALES AND YELLS TO HAVE IV TUBING REMOVED SO SHE CAN MOVE AROUND. SHE STATE FEELING CLAUSTROPHOBIC AND WANTS TO LEAVE. ENCOURAGE DEEP BREATHING AND FOCUS ON THE PLAN OF CARE. IV SL FOR 30 MINUTES. NEW ORDER FOR ATIVAN OBTAINED AND GIVEN PER 1599 PT. APPEARS CALMER AND FRIEND/FAMILY AT BS. PT. IS HUNGRY AND ICE CHIPS GIVEN.
--- NOTE | 2016-10-30 20:00 | NUR ---
PATIENT SEEN BY , NO NEW ORDER,PATIENT ASLEEP MOST OF TIMES, VITAL SIGNS STABLE.
[2016-10-30 20:31] VITALS: BP 140/63
[2016-10-31] MEDS: VANCOMYCIN IV 1,500 MG in IV DEXTROSE 5% 500 ML IV SCH ×2 (02:58→20:30)
[2016-10-31 04:51] VITALS: BP 107/74
--- NOTE | 2016-10-31 04:53 | NUR ---
PATIENT SLEPT WELL THROUGH THE NIGHT, AFEBRILE, NO ACUTE DISTRESS,IVF GOING ON,NEEDS ATTENDED.
--- NOTE | 2016-10-31 06:00 | NUR ---
iv site infiltrated,iv restarted to right upper arm by ER nurse with angio ga 22.patient is refused lab blood drawn this am,requested mid line or picc underliner rn was notified
[2016-10-31] MEDS: PANTOPRAZOLE SODIUM 40 MG VIAL IV SCH (06:24)
[2016-10-31] MEDS: METRONIDAZOLE 500 MG/NS 100ML 500 MG in PREMIXED 1 EACH IV SCH ×3 (06:24→21:46)
[2016-10-31] MEDS: AZTREONAM 2 G in IV NORMAL SALINE 100 ML IV SCH ×2 (07:10→16:15)
[2016-10-31 11:03] VITALS: BP 108/64
--- NOTE | 2016-10-31 13:51 | NUR ---
CLINICAL PHARMACY NOTE: VANCOMYCIN PHARMACY TO DOSE Sujbective: To start vancomycin in this 46 yo female for indication of "suspected infection" Objective: height: 160 cm weight: 93 kg BUN 11 Scr 0.9 wbc 13 temp 98.4 Assessment/Plan As renal function remains stable, will continue regimen of vanco 1500mg q17hr, first dose was given today early am 8/3 @0300. Expected trough of 14.82. Will order trough before 4th scheduled dose (not ordered yet). Will follow renal function and dose per level if to become unstable. Will continue to monitor
[2016-10-31 15:04] VITALS: BP 122/77
[2016-10-31] MEDS: ALPRAZOLAM 0.5 MG TABLET PO PRN (20:34)
[2016-10-31 20:51] VITALS: BP 108/76
[2016-11-01] MEDS: AZTREONAM 2 G in IV NORMAL SALINE 100 ML IV SCH ×3 (00:48→12:30)
[2016-11-01 04:00] VITALS: BP 97/61
[2016-11-01] MEDS: METRONIDAZOLE 500 MG/NS 100ML 500 MG in PREMIXED 1 EACH IV SCH ×2 (05:24→12:31)
[2016-11-01] MEDS ORDERED: PANTOPRAZOLE SODIUM 40 MG TABLET.DR PO SCH (07:00)
--- NOTE | 2016-11-01 07:15 | NUR ---
IV INFILTRATED,UNABLE TO GIVE MEDICATION,WILL ENDORSED TO NEXT SHIFT.
[2016-11-01 11:20] VITALS: BP 114/82
[2016-11-01 12:01] LABS: BASOPHILS % (AUTO) 0.3 % (0.0-2.0); EOSINOPHILS # (AUTO) 0.6 K/uL (0.0-0.7); EOSINOPHILS % (AUTO) 4.5 % (0.0-7.0); HEMATOCRIT 35.7 % (37-47); HEMOGLOBIN 11.9 G/DL (12.0-16.0); LYMPHOCYTES # (AUTO) 1.7 K/UL (0.8-4.8); LYMPHOCYTES % (AUTO) 13.7 % (20.5-51.5); MEAN CORPUSCULAR HEMOGLOBIN 29.9 UUG (27.0-31.0); MEAN CORPUSCULAR HGB CONC 33 g/dL (32.0-37.0); MONOCYTES # (AUTO) 0.5 K/UL (0.1-1.30); MONOCYTES % (AUTO) 4.3 % (0.0-11.0); NEUTROPHILS # (AUTO) 9.6 K/UL (1.8-8.9); NEUTROPHILS % (AUTO) 77.2 % (38.5-71.5); PLATELET COUNT (AUTO) 295 K/UL (150-450); RED BLOOD CELL COUNT(AUTO) 3.96 MIL/UL (4.2-5.4); WHITE BLOOD COUNT (AUTO) 12.4 K/UL (4.0-11.2)
[2016-11-01 12:06] LABS: BILIRUBIN,TOTAL 0.1 mg/dL (0.2-1.0); CREATININE 0.9 mg/dL (0.6-1.3); MAGNESIUM 1.6 mg/dL (1.8-2.4); PHOSPHOROUS 3.3 mg/dL (2.5-4.9); POTASSIUM 4.1 mmol/L (3.5-5.1); TOTAL PROTEIN, SERUM 6.5 g/dL (6.4-8.2)
[2016-11-01] MEDS: VANCOMYCIN IV 1,500 MG in IV DEXTROSE 5% 500 ML IV SCH (12:30)
[2016-11-01] MEDS: ALPRAZOLAM 0.5 MG TABLET PO PRN (12:30)
--- NOTE | 2016-11-01 12:31 | NUR ---
Patient is refusing to get a new IV at this time. Patient IV site no longer working. Patient is a difficult stick. Patient wishes to start oral antibiotics.
[2016-11-01] MEDS ORDERED: METRONIDAZOLE 500 MG TABLET PO SCH (14:15)
[2016-11-01] MEDS ORDERED: MAGNESIUM OXIDE 400 MG TABLET PO ONE (14:15)
[2016-11-01 15:06] VITALS: BP 106/74
--- NOTE | 2016-11-01 15:44 | NUR ---
CLINICAL PHARMACY NOTE: VANCOMYCIN PHARMACY TO DOSE Sujbective: To continue vancomycin in this 46 yo female for indication of "suspected infection" Objective: height: 160 cm weight: 93 kg BUN 11 (8/3) Scr 0.9 (8/3) wbc 13 (8/) temp 98.7 Assessment/Plan As renal function remains stable, will continue regimen of vanco 1500mg q17hr, third dose due today at 1300. Expected trough of 14.82. Ordered trough before 4th scheduled dose (due tomorrw 11/02 @0530). RN endorsed to hold dose if tr >20. Will check level in am and adjust as needed. Will continue to monitor
--- NOTE | 2016-11-01 17:32 | NUR ---
Patient left AMA at 1630. See Discharge. Incident report done.
== END 2016-11-01 16:30 | disposition left against medical advice (07) | DRG 720 ==
LOC: ER 19:14 → MED 10-30 01:28
DX: A41.9 Sepsis, unspecified organism (principal); K76.0 Fatty (change of) liver, not elsewhere classified; E44.0 Moderate protein-calorie malnutrition; K75.3 Granulomatous hepatitis, not elsewhere classified; E87.1 Hypo-osmolality and hyponatremia; N39.0 Urinary tract infection, site not specified; E86.0 Dehydration; E83.51 Hypocalcemia; N70.93 Salpingitis and oophoritis, unspecified; F15.10 Other stimulant abuse, uncomplicated; F17.210 Nicotine dependence, cigarettes, uncomplicated; Z97.5 Presence of (intrauterine) contraceptive device; E83.42 Hypomagnesemia; R73.9 Hyperglycemia, unspecified; R93.8 Abnormal findings on diagnostic imaging of other specified body structures; J42 Unspecified chronic bronchitis; G89.29 Other chronic pain; M54.40 Lumbago with sciatica, unspecified side; E66.9 Obesity, unspecified; Z88.0 Allergy status to penicillin; Z68.36 Body mass index [BMI] 36.0-36.9, adult; Z88.2 Allergy status to sulfonamides; Z80.3 Family history of malignant neoplasm of breast; Z80.41 Family history of malignant neoplasm of ovary; Z80.1 Family history of malignant neoplasm of trachea, bronchus and lung; Z80.49 Family history of malignant neoplasm of other genital organs; Z88.1 Allergy status to other antibiotic agents; Z87.01 Personal history of pneumonia (recurrent); K57.30 Diverticulosis of large intestine without perforation or abscess without bleeding; N83.202 Unspecified ovarian cyst, left side; N83.201 Unspecified ovarian cyst, right side
CPT/HCPCS: 36415; 70030-TC; 71010; 76856; 82306; 83605; 83690; 83735; 84100; 84443; 84703; 85025; 85610; 87040; 87086; 93005; 93307; A4663; C9113; J2405; J3370; J3490; J7030; J7050; J7060; Q9967

== ENCOUNTER 2017-01-07 10:49 | Emergency (ER) | payer OTHER ==
[~2017-01-07] VITALS: Ht 160 cm; Wt 92.5 kg
[~2017-01-07 10:49] MED LIST changes: +CIPR-262 PO; +CLIN300C11 PO; +HYDR-3326 PO; -IBUPROFEN; -TYLENOL
[2017-01-07] MEDS ORDERED: predniSONE 10 MG TABLET PO ONE (11:00)
[2017-01-07] MEDS ORDERED: IPRATROPIUM BROMIDE 0.5 MG/2.5 ML NEBU NEB ONE (11:00)
[2017-01-07] MEDS ORDERED: ALBUTEROL SULFATE 2.5 MG/3 ML NEBU NEB ONE (11:00)
[2017-01-07] MEDS ORDERED: IPRATROPIUM BROMIDE 0.5 MG/2.5 ML NEBU ONE (11:22)
[2017-01-07] MEDS ORDERED: ALBUTEROL SULFATE 2.5 MG/3 ML NEBU ONE (11:22)
--- NOTE | 2017-01-07 11:27 | NUR ---
Pt c/o non-productive cough, SOB, and chest congestion x 2+ weeks, laryngitis, and GASTON. LS = and rhonchi, slight wheezes. Pt denies CP, dizziness, n/v, no other complaints, no distress noted.
[2017-01-07] MEDS ORDERED: predniSONE 50 MG TABLET ONE (11:38)
[2017-01-07] MEDS ORDERED: predniSONE 10 MG TABLET ONE (11:38)
== END 2017-01-07 12:58 | disposition home or self-care (01) ==
LOC: ER 10:49
DX: J45.909 Unspecified asthma, uncomplicated (principal); F17.200 Nicotine dependence, unspecified, uncomplicated; Z88.0 Allergy status to penicillin
CPT/HCPCS: A4663; J3590; J7512

== ENCOUNTER 2017-04-23 01:08 | Emergency (ER) | payer OTHER ==
[~2017-04-23] VITALS: Ht 162.6 cm; Wt 93.0 kg
[2017-04-23] MEDS ORDERED: XANAX PO (01:29)
[2017-04-23 03:21] LABS: *BLOOD, URINE 3+ (NEGATIVE); *CLARITY,URINE CLOUDY (CLEAR); *COLOR,URINE AMBER (YELLOW); *KETONES,URINE TRACE (NEGATIVE); LEUKOCYTE ESTERASE ,URINE TRACE (NEGATIVE); NITRITE, URINE NEGATIVE (NEGATIVE); PH,URINE 5.5 (5.0-8.0); UGLUCOSE NEGATIVE (NEGATIVE)
[2017-04-23 03:23] LABS: *URINE HCG, QUAL NEGATIVE (NEGATIVE)
[2017-04-23 03:25] LABS: *BILIRUBIN,URIN 2+ (NEGATIVE); *PROTEIN,URINE 3+ (NEGATIVE)
[2017-04-23 03:32] LABS: BACTERIA,URINE MODERATE /HPF (NONE SEEN); RBC,URINE TNTC /HPF (0-3); SQUAMOUS EPITHELIAL CELL,UR FEW /HPF (NONE SEEN)
--- NOTE | 2017-04-23 05:07 | NUR ---
Patient discharged to home in stable conditon. Written and verbal after care instructions given. Patient verbalizes understanding of instructions.
== END 2017-04-23 05:08 | disposition home or self-care (01) ==
LOC: ER 01:18
DX: N70.11 Chronic salpingitis (principal); L02.211 Cutaneous abscess of abdominal wall; F17.200 Nicotine dependence, unspecified, uncomplicated; K57.30 Diverticulosis of large intestine without perforation or abscess without bleeding; Z88.0 Allergy status to penicillin; Z90.49 Acquired absence of other specified parts of digestive tract
CPT/HCPCS: 74176; 81001; 84703; 99285; A4663

== ENCOUNTER 2017-07-25 23:13 | Emergency (ER) | payer OTHER ==
[~2017-07-25] VITALS: Ht 160 cm; Wt 88.0 kg
[~2017-07-25 23:13] MED LIST changes: -CIPR-262 PO; -CLIN300C11 PO; +XANAX PO
--- NOTE | 2017-07-26 00:02 | NUR ---
Dr. Carmona at bedside for MSE.
--- NOTE | 2017-07-26 00:20 | NUR ---
Patient discharged to home in stable conditon. Written and verbal after care instructions given. Patient verbalizes understanding of instructions. Patient ambulated out of ER with steady gait, VSS, all belongings taken, no acute signs of distress.
[2017-07-26 00:37] VITALS: BP 115/81
== END 2017-07-26 00:30 | disposition home or self-care (01) ==
LOC: ER 23:18
DX: B35.4 Tinea corporis (principal); H66.91 Otitis media, unspecified, right ear; H60.91 Unspecified otitis externa, right ear; G89.29 Other chronic pain; M54.5 Low back pain; F17.210 Nicotine dependence, cigarettes, uncomplicated; Z90.49 Acquired absence of other specified parts of digestive tract; Z88.0 Allergy status to penicillin; Z88.1 Allergy status to other antibiotic agents; Z88.5 Allergy status to narcotic agent; Z88.8 Allergy status to other drugs, medicaments and biological substances; Z88.2 Allergy status to sulfonamides; Z79.891 Long term (current) use of opiate analgesic; Z79.899 Other long term (current) drug therapy
CPT/HCPCS: A4663

== ENCOUNTER 2017-12-30 01:01 | Emergency (ER) | payer SELFPAY ==
[~2017-12-30] VITALS: Ht 162.6 cm; Wt 88.0 kg
[2017-12-30] MEDS ORDERED: predniSONE 20 MG TABLET ONE (01:53)
[2017-12-30] MEDS: predniSONE 10 MG TABLET PO ONE (01:55)
[2017-12-30] MEDS ORDERED: ALBUTEROL SULFATE 2.5 MG/3 ML NEBU ONE (01:58)
[2017-12-30] MEDS ORDERED: IPRATROPIUM BROMIDE 0.5 MG/2.5 ML NEBU ONE (01:58)
[2017-12-30] MEDS: IPRATROPIUM BROMIDE 0.5 MG/2.5 ML NEBU NEB ONE (02:06)
[2017-12-30] MEDS: ALBUTEROL SULFATE 2.5 MG/3 ML NEBU NEB ONE (02:06)
--- NOTE | 2017-12-30 02:31 | NUR ---
Patient discharged to home in stable conditon. Written and verbal after care instructions given. Patient verbalizes understanding of instructions.
[2017-12-30 02:33] VITALS: BP 116/74
== END 2017-12-30 03:16 | disposition home or self-care (01) ==
LOC: ER 01:10
DX: J18.1 Lobar pneumonia, unspecified organism (principal); J45.909 Unspecified asthma, uncomplicated; F17.200 Nicotine dependence, unspecified, uncomplicated; F11.10 Opioid abuse, uncomplicated; F12.10 Cannabis abuse, uncomplicated; Z88.0 Allergy status to penicillin; Z88.1 Allergy status to other antibiotic agents; Z88.5 Allergy status to narcotic agent; Z88.7 Allergy status to serum and vaccine; Z88.8 Allergy status to other drugs, medicaments and biological substances
CPT/HCPCS: 71045; A4663; J3590; J7512

== ENCOUNTER 2018-01-03 03:33 | Inpatient (IN) | payer MEDICAID ==
[~2018-01-03] VITALS: Ht 162.6 cm; Wt 92.3 kg
[2018-01-03] MEDS ORDERED: ALBUTEROL SULFATE 2.5 MG/ 0.5 ML NEBU ONE ×2 (04:13→06:20)
[2018-01-03] MEDS ORDERED: IPRATROPIUM BROMIDE 0.5 MG/2.5 ML NEBU ONE ×2 (04:13→06:20)
[2018-01-03] MEDS ORDERED: IPRATROPIUM BROMIDE 0.5 MG/2.5 ML NEBU NEB ONE ×2 (04:15→06:15)
[2018-01-03] MEDS ORDERED: ALBUTEROL SULFATE 2.5 MG/3 ML NEBU NEB ONE ×2 (04:15→06:15)
[2018-01-03] MEDS ORDERED: methylPREDNISolone SOD SUCC 125 MG/2 ML VIAL IV ONE (04:45)
[2018-01-03 05:01] LABS: BASOPHILS % (AUTO) 0.2 % (0.0-2.0); EOSINOPHILS % (AUTO) 0.1 % (0.0-7.0); HEMATOCRIT 38.3 % (31.2-41.9); HEMOGLOBIN 13.1 g/dL (10.9-14.3); LYMPHOCYTES # (AUTO) 1.6 K/uL (20.0-40.0); MEAN CORPUSCULAR HGB CONC 34 g/dL (32.3-35.6); MEAN CORPUSCULAR VOLUME 90.8 fL (75.5-95.3); MONOCYTES # (AUTO) 0.6 K/uL (2.0-10.0); MONOCYTES % (AUTO) 3.5 % (0.0-11.0); NEUTROPHILS # (AUTO) 14.1 K/uL (1.8-8.9); NEUTROPHILS % (AUTO) 86.2 % (38.5-71.5); PLATELET COUNT (AUTO) 381 K/uL (179-408); RED BLOOD CELL COUNT(AUTO) 4.22 MIL/uL (3.63-4.92); WHITE BLOOD COUNT (AUTO) 16.4 K/uL (3.8-11.8)
[2018-01-03 05:14] LABS: *BILIRUBIN,URIN NEGATIVE (NEGATIVE); *BLOOD, URINE NEGATIVE (NEGATIVE); *COLOR,URINE YELLOW (YELLOW); *KETONES,URINE NEGATIVE (NEGATIVE); *PROTEIN,URINE NEGATIVE (NEGATIVE); *UROBILINOGEN,URINE 0.2 E.U./dl (NORMAL); LEUKOCYTE ESTERASE ,URINE 1+ (NEGATIVE); NITRITE, URINE NEGATIVE (NEGATIVE); PH,URINE 6.5 (5.0-8.0); UGLUCOSE TRACE (NEGATIVE)
[2018-01-03 05:27] LABS: CARBON DIOXIDE 27 mmol/L (21-32); CHLORIDE 104 mmol/L (98-107); CREATININE 0.9 mg/dL (0.6-1.3); GLUCOSE 117 mg/dL (74-106); POTASSIUM 4.1 mmol/L (3.5-5.1); UREA NITROGEN, BLOOD 13 mg/dL (7-18)
[2018-01-03 05:29] LABS: BACTERIA,URINE FEW /HPF (NONE SEEN); RBC,URINE 0-3 /HPF (0-3)
[2018-01-03 05:30] LABS: *CLARITY,URINE HAZY (CLEAR); SQUAMOUS EPITHELIAL CELL,UR MANY /HPF (NONE SEEN)
[2018-01-03 05:32] LABS: ALANINE AMINOTRANSFERASE 28 U/L (14-59); ALKALINE PHOSPHATASE 104 U/L (50-136); ASPARTATE AMINOTRANSFERASE 10 U/L (15-37); BILIRUBIN,DIRECT < 0.1 mg/dL (0.0-0.2); BILIRUBIN,TOTAL 0.2 mg/dL (0.2-1.0); TOTAL PROTEIN, SERUM 7.2 g/dL (6.4-8.2)
[2018-01-03] MEDS ORDERED: LEVOFLOXACIN 750 MG TABLET PO ONE (06:00)
[2018-01-03] MEDS ORDERED: LEVOFLOXACIN 750 MG TABLET ONE (06:02)
[2018-01-03] MEDS ORDERED: IV NS 1000 ML 1,000 ML IV PRN (06:12)
[2018-01-03] MEDS ORDERED: MEROPENEM 1,000 MG in IV NORMAL SALINE 250 ML IV ONE (06:15)
[2018-01-03] MEDS ORDERED: LEVOFLOXACIN 750 MG/D5W 150 ML PIGGYBACK IV ONE (06:15)
[2018-01-03] MEDS ORDERED: IV NORMAL SALINE 1000 ML BAG IV ONE (06:15)
[2018-01-03] MEDS ORDERED: Z GUARD REMEDY PASTE 57 GM TUBE TOP PRN (06:15)
[2018-01-03] MEDS ORDERED: ONDANSETRON 4 MG/2 ML VIAL IV PRN (06:15)
[2018-01-03] MEDS ORDERED: MAGNESIUM HYDROXIDE 30 ML LIQUID UDC PO PRN (06:15)
[2018-01-03] MEDS ORDERED: ACETAMINOPHEN 325 MG TABLET PO PRN (06:15)
[2018-01-03] MEDS ORDERED: MEROPENEM 1 G VIAL IV ONE (06:23)
[2018-01-03] MEDS ORDERED: LEVOFLOXACIN 750MG/D5W 150 ML IV ONE (06:23)
[2018-01-03 08:00] VITALS: BP 142/89
[2018-01-03] MEDS: ALBUTEROL SULFATE 2.5 MG/3 ML NEBU NEB SCH ×3 (08:00→15:30)
[2018-01-03] MEDS ORDERED: HYDROCODONE/APAP 5-325MG TABLET PO PRN (10:15)
[2018-01-03 10:52] VITALS: BP 147/89
[2018-01-03 11:31] VITALS: BP 137/86
[2018-01-03] MEDS: HYDROCODONE/APAP 5-325MG TABLET PO PRN ×2 (11:45→13:09)
[2018-01-03] MEDS ORDERED: ALPRAZOLAM 0.5 MG TABLET PO PRN (12:30)
[2018-01-03] MEDS ORDERED: NICOTINE 21 MG/24HR PATCH TD SCH (12:30)
[2018-01-04] MEDS ORDERED: LEVOFLOXACIN 500 MG/D5W 500 MG in PREMIXED 1 EACH IV SCH (06:00)
== END 2018-01-03 16:00 | disposition left against medical advice (07) | DRG 720 ==
LOC: ER 03:37 → MED 06:20
PROVIDERS: ADMIT Internal Medicine; ATTEND Internal Medicine
DX: A41.9 Sepsis, unspecified organism (principal); J18.9 Pneumonia, unspecified organism; K76.0 Fatty (change of) liver, not elsewhere classified; J42 Unspecified chronic bronchitis; J98.11 Atelectasis; N39.0 Urinary tract infection, site not specified; G89.29 Other chronic pain; E66.9 Obesity, unspecified; Z68.34 Body mass index [BMI] 34.0-34.9, adult; Z88.2 Allergy status to sulfonamides; Z88.6 Allergy status to analgesic agent; Z88.0 Allergy status to penicillin; Z90.49 Acquired absence of other specified parts of digestive tract; Z83.3 Family history of diabetes mellitus; Z80.1 Family history of malignant neoplasm of trachea, bronchus and lung; M54.40 Lumbago with sciatica, unspecified side; F17.210 Nicotine dependence, cigarettes, uncomplicated; F19.10 Other psychoactive substance abuse, uncomplicated; Z87.42 Personal history of other diseases of the female genital tract
CPT/HCPCS: 36415; 71045; 83605; 85025; 85730; 87040; 87086; 93005; A4663; J1956; J2185; J2930; J3590; J7030; J7050

== ENCOUNTER 2019-01-13 14:44 | Emergency (ER) | payer MEDICAID, OTHER ==
[~2019-01-13] VITALS: Ht 160 cm; Wt 83.9 kg
--- NOTE | 2019-01-13 14:52 | NUR ---
Dr Pierce at the bedside for MSE.
[2019-01-13 15:17] LABS: *URINE HCG, QUAL NEGATIVE (NEGATIVE)
--- NOTE | 2019-01-13 15:21 | NUR ---
Pt out of ER for CT.
[2019-01-13] MEDS ORDERED: DEXAMETHASONE SOD PHOSPHATE 4 MG INJ IM ONE (16:00)
[2019-01-13] MEDS ORDERED: LIDOCAINE VISCUS 2% 15 ML UDC MM ONE (16:00)
[2019-01-13] MEDS ORDERED: DEXAMETHASONE SOD PHOSPHATE 10 MG INJ ONE (16:13)
[2019-01-13] MEDS ORDERED: LIDOCAINE VISCUS 2% 15 ML UDC ONE (16:13)
--- NOTE | 2019-01-13 16:16 | NUR ---
Patient discharged to home in stable conditon. Written and verbal after care instructions given. Patient verbalizes understanding of instructions.PT TAI LUONG.
== END 2019-01-13 16:18 | disposition home or self-care (01) ==
LOC: ER 14:44
DX: J02.8 Acute pharyngitis due to other specified organisms (principal); B97.89 Other viral agents as the cause of diseases classified elsewhere; F17.200 Nicotine dependence, unspecified, uncomplicated; F11.10 Opioid abuse, uncomplicated; F15.10 Other stimulant abuse, uncomplicated; Z90.49 Acquired absence of other specified parts of digestive tract; Z88.0 Allergy status to penicillin; Z88.2 Allergy status to sulfonamides; Z88.5 Allergy status to narcotic agent; Z88.1 Allergy status to other antibiotic agents; Z88.8 Allergy status to other drugs, medicaments and biological substances; Z79.899 Other long term (current) drug therapy
CPT/HCPCS: 70490; 84703; 96372; 99284; J1100; A4663

== ENCOUNTER 2020-08-22 13:13 | Emergency (ER) | payer OTHER ==
[~2020-08-22] VITALS: Ht 162.6 cm; Wt 86.2 kg
--- NOTE | 2020-08-22 13:23 | NUR ---
Pt signed consent for waiver, placed in the chart.
--- NOTE | 2020-08-22 14:49 | NUR ---
Patient discharged to home in stable condition. Written and verbal after care instructions given. Patient verbalizes understanding of instructions. Stressed follow up or return to ER for worsening s/s.
== END 2020-08-22 14:51 | disposition home or self-care (01) ==
LOC: ER 13:13
DX: S00.03XA Contusion of scalp, initial encounter (principal); V68.1XXA Passenger in heavy transport vehicle injured in noncollision transport accident in nontraffic accident, initial encounter; W17.89XA Other fall from one level to another, initial encounter; Y92.89 Other specified places as the place of occurrence of the external cause; M51.36 Other intervertebral disc degeneration, lumbar region; Z80.1 Family history of malignant neoplasm of trachea, bronchus and lung; Z83.3 Family history of diabetes mellitus; Z88.1 Allergy status to other antibiotic agents; Z88.5 Allergy status to narcotic agent; Z88.0 Allergy status to penicillin; Z88.2 Allergy status to sulfonamides; F17.200 Nicotine dependence, unspecified, uncomplicated; Z90.49 Acquired absence of other specified parts of digestive tract
CPT/HCPCS: 70450; 72125; 72192; A4663

== ENCOUNTER 2020-10-13 18:00 | Emergency (ER) | payer SELFPAY ==
--- NOTE | 2020-10-13 18:17 | NUR ---
called, no answer
--- NOTE | 2020-10-13 18:22 | NUR ---
called for triage, no answer
--- NOTE | 2020-10-13 18:27 | NUR ---
called for triage, no answer
== END 2020-10-13 18:28 | disposition left against medical advice (07) ==
LOC: ER 18:02
DX: Z53.21 Procedure and treatment not carried out due to patient leaving prior to being seen by health care provider (principal)

== ENCOUNTER 2020-10-15 05:10 | Emergency (ER) | payer OTHER ==
[~2020-10-15] VITALS: Ht 162.6 cm; Wt 90.7 kg
--- NOTE | 2020-10-15 05:15 | NUR ---
pt came from home today due to tooth abcess located in left upper area of mouth starting 2 days ago. Pt. denies pain.
--- NOTE | 2020-10-15 05:22 | NUR ---
Dr. Owens at bedside for mse.
[2020-10-15] MEDS ORDERED: CLIN300C12 PO (05:25)
[2020-10-15] MEDS ORDERED: CLINDAMYCIN HCL 150 MG CAPSULE PO ONE (05:30)
[2020-10-15] MEDS ORDERED: CLINDAMYCIN HCL 150 MG CAPSULE ONE (05:33)
--- NOTE | 2020-10-15 05:33 | NUR ---
Patient discharged to home in stable condition. Written and verbal after care instructions given. Patient verbalizes understanding of instructions. Stressed follow up or return to ER for worsening s/s. Patient out of ER with steady gait, no acute signs of distress, VSS, all belongings taken.
[2020-10-15 05:34] VITALS: BP 122/75
== END 2020-10-15 05:35 | disposition home or self-care (01) ==
LOC: ER 05:12
DX: K02.9 Dental caries, unspecified (principal); F17.210 Nicotine dependence, cigarettes, uncomplicated; Z80.1 Family history of malignant neoplasm of trachea, bronchus and lung; Z83.3 Family history of diabetes mellitus; Z88.1 Allergy status to other antibiotic agents; Z88.0 Allergy status to penicillin; Z88.2 Allergy status to sulfonamides
CPT/HCPCS: A4663

== ENCOUNTER 2022-12-31 10:09 | Emergency (ER) | payer OTHER ==
[~2022-12-31] VITALS: Ht 162.6 cm; Wt 88.5 kg
[~2022-12-31 10:09] MED LIST changes: +CLIN300C12 PO
[2022-12-31] MEDS ORDERED: LIDOCAINE HCL 1% 20 ML VIAL ONE (10:18)
[2022-12-31] MEDS ORDERED: LIDOCAINE HCL 1% 20 ML VIAL IJ ONE (11:15)
[2022-12-31] MEDS ORDERED: MUPIROCIN 2% OINT 22 GM TUBE ONE (11:35)
[2022-12-31] MEDS ORDERED: KETOROLAC TROMETHAMINE 15 MG INJ ONE (11:35)
[2022-12-31] MEDS ORDERED: KETOROLAC TROMETHAMINE 15 MG INJ IM ONE (11:45)
[2022-12-31] MEDS ORDERED: MUPIROCIN 2% OINT 22 GM TUBE TP ONE (11:45)
[2022-12-31] MEDS ORDERED: IBUP-1955 PO (11:54)
[2022-12-31] MEDS ORDERED: CLIN300C12 PO (11:54)
[2022-12-31 12:33] VITALS: BP 136/83; O2SAT 100
== END 2022-12-31 12:33 | disposition home or self-care (01) ==
LOC: ER 10:09
DX: S20.411A Abrasion of right back wall of thorax, initial encounter (principal); L03.011 Cellulitis of right finger; F17.210 Nicotine dependence, cigarettes, uncomplicated; Z88.0 Allergy status to penicillin; Z88.1 Allergy status to other antibiotic agents; Z88.2 Allergy status to sulfonamides; Z88.8 Allergy status to other drugs, medicaments and biological substances; Z79.899 Other long term (current) drug therapy; X58.XXXA Exposure to other specified factors, initial encounter; Y93.89 Activity, other specified; Y92.89 Other specified places as the place of occurrence of the external cause; Y99.8 Other external cause status
CPT/HCPCS: 99284; 10060; 96372; J1885; J3490; A4663

== ENCOUNTER 2024-12-09 03:11 | Emergency (ER) | payer OTHER ==
[~2024-12-09] VITALS: Ht 162.6 cm; Wt 83.9 kg
[2024-12-09 03:10] VITALS: BP 129/82
[~2024-12-09 03:11] MED LIST changes: +IBUP-1955 PO
[2024-12-09] MEDS ORDERED: VANCOMYCIN IV 200 ML ONE (03:48)
[2024-12-09] MEDS: VANCOMYCIN IV 1,000 MG in IV DEXTROSE 5% 250 ML IV ONE (05:10)
[2024-12-09 05:30] LABS: PLATELET COUNT (AUTO) 236 K/uL (179-408); RED BLOOD CELL COUNT(AUTO) 4.12 MIL/uL (3.63-4.92); RED CELL DISTRIBUTION WIDTH 13.1 % (12.3-17.7); WHITE BLOOD COUNT (AUTO) 8.9 K/uL (3.8-11.8)
[2024-12-09 05:38] LABS: CREATININE 0.9 mg/dL (0.6-1.3); SODIUM SERUM 141.0 mmol/L (136-145); UREA NITROGEN, BLOOD 20.0 mg/dL (7-18)
[2024-12-09 05:49] LABS: ASPARTATE AMINOTRANSFERASE 19.0 U/L (15-37); TOTAL PROTEIN, SERUM 6.7 g/dL (6.4-8.2)
[2024-12-09 06:30] VITALS: BP 129/82; TEMP 98; O2SAT 99
[2024-12-09] MEDS ORDERED: MUPI22OI2 TP (06:44)
[2024-12-09] MEDS ORDERED: CLIN-118 PO (06:44)
== END 2024-12-09 07:01 | disposition home or self-care (01) ==
LOC: ER 03:20
DX: L03.116 Cellulitis of left lower limb (principal); F17.210 Nicotine dependence, cigarettes, uncomplicated; R50.9 Fever, unspecified; Z88.0 Allergy status to penicillin; Z88.1 Allergy status to other antibiotic agents; Z88.2 Allergy status to sulfonamides; Z88.5 Allergy status to narcotic agent; Z88.7 Allergy status to serum and vaccine; Z87.42 Personal history of other diseases of the female genital tract; Z87.448 Personal history of other diseases of urinary system
CPT/HCPCS: 99284; 96365; 80053; 85025; 87040; 36415; 73630; J3373; A4606; A4663